=== PATIENT | female | born 1990 | race African-American/Black ===

== ENCOUNTER 2016-10-28 08:57 | Emergency (ER) | payer MEDICAID, OTHER ==
[2016-10-28] MEDS ORDERED: Sodium Chloride 0.9% 1,000 ML ONE ×2 (09:26→10:25)
[2016-10-28 09:37] LABS: Bilirubin Negative (Negative); Blood, Urine Trace (Negative); Glucose, Urine (Dipstick) 500 mg/dL (Negative); Leukocyte Trace (Negative); Nitrite Negative (Negative); Protein, Urine (Dipstick) Negative (Neg-Trace); Urobilinogen 0.2 mg/dL (0.2-1.0); pH, Urine 5.5 (5.0-9.0)
[2016-10-28 09:43] LABS: Clarity Cloudy (Clear); Specific Gravity, Urine 1.005 (1.002-1.036)
[2016-10-28 09:45] LABS: Pregnancy Test - Urine (BHCG) NEGATIVE (NEGATIVE); Pregu Control Bar Appear? YES (CONTROL BAR); Specific Gravity 1.005 (1.002-1.036)
[2016-10-28 09:50] LABS: #Basophils 0.1 thou/uL (0.0-0.2); #Eosinphils 0.2 thou/uL (0.0-0.7); #Lymphocytes 3.5 thou/uL (1.20-3.40); #Monocytes 0.4 thou/uL (0.11-0.59); #Neutrophils 2.9 thou/uL (1.40-6.50); %Basophils 0.9 % (0.0-1.0); %Eosinophils 2.5 % (0.0-10.0); %Lymphocytes 51.6 % (21.0-51.0); %Monocytes 5.4 % (0.0-10.0); %Neutrophils 39.6 % (42.0-75.0); CKMB 0.8 ng/mL (0-6.6); Mean Corpuscular HGB CONC 32.6 g/dL (32.0-36.0); Mean Corpuscular Hemoglobin 27.2 pg (27.0-31.0); Mean Corpuscular Volume 83.4 fl (81.0-99.0); Mean Platelet Volume 10.1 fL (7.4-10.4); Platelet Count 222 thou/uL (130-400); RBC Distribution Width 12.7 % (11.5-14.5); Red Blood Cell (RBC) Count 4.79 mill/uL (4.20-5.40); Troponin I 0.012 ng/mL (< 0.028); White Blood Cell (WBC) Count 7.4 thou/uL (4.8-10.8)
[2016-10-28 09:53] LABS: ALT (SGPT) 14 U/L (8-55); AST (SGOT) 13 U/L (5-34); Albumin 4.1 g/dL (3.5-5.0); Alkaline Phosphatase 103 U/L (40-150); Anion Gap 17 mmol/L (10-20); BUN (Urea Nitrogen) 8 mg/dL (7.0-18.7); Bilirubin, Total 0.6 mg/dL (0.2-1.2); CK (CPK) 46 U/L (29-168); Calc. Creatinine Clearance 0 mL/min (70-130); Calcium 9.7 mg/dL (7.8-10.44); Carbon Dioxide 24 mmol/L (22-29); Chloride 97 mmol/L (98-107); Estimated GFR-MDRD 60; Globulin 4.2 g/dL (2.4-3.5); Lipase 23 U/L (8-78); Potassium 4.2 mmol/L (3.5-5.1); Protein, Total 8.3 g/dL (6.0-8.3); Sodium 134 mmol/L (136-145)
[2016-10-28 09:55] LABS: Bacteria/HPF 3+ HPF (None Seen); RBC/HPF 0-3 HPF (0-3)
[2016-10-28 09:56] LABS: Crystals/HPF 1+ AMORPH PHOS HPF (Negative); Other Microscopic Description NO
[2016-10-28 10:00] LABS: Glucose 592 mg/dL (70-105)
[2016-10-28] MEDS ORDERED: Insulin Regular 300 UNITS/3 ML VIAL ONE (10:09)
[2016-10-28] MEDS ORDERED: Sodium Chloride 0.9% 0 ML ONE ×2 (10:09→10:10)
[2016-10-28] MEDS ORDERED: Sodium Chloride 0.9% 100 ML ONE (10:10)
[2016-10-28 10:31] LABS: Base Excess -0.2 mEq/L (0 (+/- 2.5)); Hemoglobin (Hb) 12.8 g/dL (11.7-15.5)
--- NOTE | 2016-10-28 10:40 | RAD ---
PORTABLE FRONTAL CHEST RADIOGRAPH: Date: 10-28-16 Comparison: 12-05-14 History: Chest pain. FINDINGS: There is no pneumothorax, pleural fluid, focal consolidation or alveolar edema. Heart and mediastina l contours are grossly unremarkable. Osseous structures are grossly unremarkable. IMPRESSION: No acute findings. POS: [facility]
[2016-10-28] MEDS ORDERED: Levemir Flexpen 100 UNITS/ML PEN SC SCH (11:30)
[2016-10-28 12:40] LABS: Amphetamine Not Detected (NotDetected); Barbiturates Screen Not Detected (NotDetected); Benzodiazepine Screen Not Detected (NotDetected); Cocaine Metabolite Screen Not Detected (NotDetected); Medtox Control Line Valid? VALID (VALID); Methadone Not Detected (NotDetected); Methamphetamine Not Detected (NotDetected); Opiate Screen Not Detected (NotDetected); Oxycodone Screen Not Detected (NotDetected); Phencyclidine (PCP) Not Detected (NotDetected); THC/Cannabinoid Screen Not Detected (NotDetected); Tricyclic Screen Not Detected (NotDetected)
[2016-10-28] MEDS ORDERED: Cipro 250 MG TAB ONE (13:05)
== END 2016-10-28 13:15 | disposition home or self-care (01) ==
LOC: NAV ERS 08:57
DX: R07.9 Chest pain, unspecified (principal); E86.0 Dehydration; E10.65 Type 1 diabetes mellitus with hyperglycemia; N39.0 Urinary tract infection, site not specified
CPT/HCPCS: 36415; 36416; 71010; 80053; 80306; 81003; 81015; 81025; 82010; 82550; 82553; 82805; 83690; 84484; 85025; 87077; 87086; 87186; 93005; 96361; 96365; 96366; 96372; J1815; J7050

== ENCOUNTER 2016-12-03 19:08 | Emergency (ER) | payer OTHER ==
[2016-12-03 20:28] LABS: Bilirubin Negative (Negative); Blood, Urine Trace (Negative); Clarity Clear (Clear); Glucose, Urine (Dipstick) 500 mg/dL (Negative); Leukocyte Negative (Negative); Nitrite Negative (Negative); Protein, Urine (Dipstick) Negative (Neg-Trace); Urobilinogen 0.2 mg/dL (0.2-1.0); pH, Urine 5.5 (5.0-9.0)
[2016-12-03 20:30] LABS: Specific Gravity, Urine 1.027 (1.002-1.036)
[2016-12-03 20:31] LABS: Bacteria/HPF 1+ HPF (None Seen); RBC/HPF None Seen HPF (0-3); WBC/HPF 0-3 HPF (0-3)
[2016-12-03 20:32] LABS: Pregnancy Test - Urine (BHCG) Negative (NEGATIVE); Pregu Control Background? CLEAR/WHITE (CLR/WHITE); Pregu Control Bar Appear? YES (CONTROL BAR); Specific Gravity 1.027 (1.002-1.036)
[2016-12-03] MEDS ORDERED: Sodium Chloride 0.9% 1,000 ML ONE ×2 (20:49→21:28)
[2016-12-03] MEDS ORDERED: Ondansetron HCl/PF 4 MG/2 ML Vial ONE ×2 (20:52→20:53)
[2016-12-03] MEDS ORDERED: Fentanyl 100 MCG/2 ML VIAL ONE (20:53)
[2016-12-03] MEDS ORDERED: Insulin Regular 300 UNITS/3 ML VIAL ONE (21:09)
[2016-12-03 21:18] LABS: #Basophils 0.1 thou/uL (0.0-0.2); #Eosinphils 0.1 thou/uL (0.0-0.7); #Lymphocytes 4.6 thou/uL (1.20-3.40); #Monocytes 0.5 thou/uL (0.11-0.59); #Neutrophils 3.4 thou/uL (1.40-6.50); %Basophils 1.2 % (0.0-1.0); %Eosinophils 1.4 % (0.0-10.0); %Lymphocytes 52.4 % (21.0-51.0); %Monocytes 6.1 % (0.0-10.0); Hemoglobin 13.1 g/dL (12.0-16.0); Mean Corpuscular HGB CONC 32.8 g/dL (32.0-36.0); Mean Corpuscular Hemoglobin 27.1 pg (27.0-31.0); Mean Corpuscular Volume 82.7 fl (81.0-99.0); Mean Platelet Volume 9.8 fL (7.4-10.4); Platelet Count 235 thou/uL (130-400); RBC Distribution Width 12.9 % (11.5-14.5); Red Blood Cell (RBC) Count 4.84 mill/uL (4.20-5.40); White Blood Cell (WBC) Count 8.7 thou/uL (4.8-10.8)
[2016-12-03 21:22] LABS: Anion Gap 19 mmol/L (10-20); BUN (Urea Nitrogen) 6 mg/dL (7.0-18.7); Calc. Creatinine Clearance 0 mL/min (70-130); Calcium 10.1 mg/dL (7.8-10.44); Carbon Dioxide 26 mmol/L (22-29); Chloride 94 mmol/L (98-107); Estimated GFR-MDRD 73; Glucose 453 mg/dL (70-105); Potassium 4.6 mmol/L (3.5-5.1); Sodium 134 mmol/L (136-145)
[2016-12-03] MEDS ORDERED: Acetaminophen 325 MG TAB ONE (21:32)
== END 2016-12-03 22:56 | disposition home or self-care (01) ==
LOC: NAV ERS 19:08
DX: E10.65 Type 1 diabetes mellitus with hyperglycemia (principal); T23.262A Burn of second degree of back of left hand, initial encounter; T23.261A Burn of second degree of back of right hand, initial encounter; R53.1 Weakness; X08.8XXA Exposure to other specified smoke, fire and flames, initial encounter
CPT/HCPCS: 36416; 80048; 81003; 81015; 81025; 82010; 85025; 96361; 96374; 96375; J1815; J2405; J3010; J7050

== ENCOUNTER 2017-04-01 22:11 | Emergency (ER) | payer OTHER, SELFPAY ==
[2017-04-01] MEDS ORDERED: Fluorescein Opthalmic Strip ONE (22:33)
[2017-04-01] MEDS ORDERED: HYDROcodone/Acetaminophen 5/325 mg Tablet ONE (22:47)
[2017-04-01] MEDS ORDERED: Erythromycin Base 0.5% Oint 1 GM TUBE ONE (22:47)
== END 2017-04-01 22:58 | disposition home or self-care (01) ==
LOC: NAV ERS 22:11
DX: S05.91XA Unspecified injury of right eye and orbit, initial encounter (principal); E10.40 Type 1 diabetes mellitus with diabetic neuropathy, unspecified; W22.8XXA Striking against or struck by other objects, initial encounter
CPT/HCPCS: 99283

== ENCOUNTER 2017-04-27 20:48 | Emergency (ER) | payer SELFPAY ==
[2017-04-27] MEDS ORDERED: Ketorolac Tromethamine 60 MG/2 ML VIAL ONE (21:19)
[2017-04-27] MEDS ORDERED: Ondansetron ODT 4 MG TAB ONE (21:19)
[2017-04-27] MEDS ORDERED: Acetaminophen 500 MG TAB ONE (21:19)
[2017-04-27] MEDS ORDERED: diphenhydrAMINE 25 MG CAP ONE (21:22)
== END 2017-04-27 21:45 | disposition home or self-care (01) ==
LOC: NAV ERS 20:48
DX: R51 Headache (principal); E10.40 Type 1 diabetes mellitus with diabetic neuropathy, unspecified
CPT/HCPCS: 96372; J1885; Q0162

== ENCOUNTER 2017-08-15 11:50 | Emergency (ER) | payer OTHER, SELFPAY | END 2017-08-15 12:33 | disposition home or self-care (01) | LOC: NAV ERS 11:50 | DX: E10.40 Type 1 diabetes mellitus with diabetic neuropathy, unspecified (principal) | CPT/HCPCS: 99283 ==

== ENCOUNTER 2017-09-26 12:32 | Emergency (ER) | payer MEDICAID, SELFPAY ==
[2017-09-26] MEDS ORDERED: Cephalexin 250 MG CAP ONE (13:03)
[2017-09-26] MEDS ORDERED: Sulfameth/Trimethoprim DS 800-160mg TAB ONE (13:03)
== END 2017-09-26 13:10 | disposition home or self-care (01) ==
LOC: NAV ERS 12:32
DX: T81.4XXA Infection following a procedure, initial encounter (principal); E10.40 Type 1 diabetes mellitus with diabetic neuropathy, unspecified; Z79.899 Other long term (current) drug therapy
CPT/HCPCS: 99282

== ENCOUNTER 2018-01-11 18:38 | Emergency (ER) | payer SELFPAY ==
[2018-01-11] MEDS ORDERED: diphenhydrAMINE 50 MG/ML VIAL ONE (19:41)
[2018-01-11] MEDS ORDERED: Metoclopramide HCl 10 MG/2 ML VIAL ONE (19:41)
[2018-01-11] MEDS ORDERED: Sodium Chloride 0.9% 0 ML ONE (19:41)
[2018-01-11 19:48] LABS: Bilirubin Negative (Negative); Blood, Urine Trace (Negative); Glucose, Urine (Dipstick) >=1000 mg/dL (Negative); Leukocyte Large (Negative); Nitrite Negative (Negative); Protein, Urine (Dipstick) Negative (Neg-Trace); Urobilinogen 0.2 mg/dL (0.2-1.0)
[2018-01-11 20:01] LABS: Clarity SL HAZY (Clear)
[2018-01-11 20:02] LABS: #Basophils 0.1 thou/uL (0.0-0.2); #Eosinphils 0.1 thou/uL (0.0-0.7); #Lymphocytes 3.7 thou/uL (1.20-3.40); #Monocytes 0.5 thou/uL (0.11-0.59); #Neutrophils 3.4 thou/uL (1.40-6.50); %Basophils 1.2 % (0.0-1.0); %Eosinophils 1.6 % (0.0-10.0); %Monocytes 6.9 % (0.0-10.0); %Neutrophils 43.5 % (42.0-75.0); Hemoglobin 11.7 g/dL (12.0-16.0); Mean Corpuscular HGB CONC 31.3 g/dL (32.0-36.0); Mean Corpuscular Hemoglobin 26.4 pg (27.0-31.0); Mean Corpuscular Volume 84.3 fL (78.0-98.0); Mean Platelet Volume 10.9 fL (7.4-10.4); Platelet Count 185 thou/uL (130-400); RBC Distribution Width 11.8 % (11.5-14.5); Red Blood Cell (RBC) Count 4.42 mill/uL (4.20-5.40); White Blood Cell (WBC) Count 7.8 thou/uL (4.8-10.8)
[2018-01-11 20:03] LABS: BHCG - Serum Negative (NEGATIVE); Pregs Control Bar Appear? YES (CONTROL BAR)
[2018-01-11 20:04] LABS: Amphetamine Not Detected (NotDetected); Barbiturates Screen Not Detected (NotDetected); Benzodiazepine Screen Not Detected (NotDetected); Cocaine Metabolite Screen Not Detected (NotDetected); Medtox Control Line Valid? VALID (VALID); Methadone Not Detected (NotDetected); Methamphetamine Not Detected (NotDetected); Opiate Screen Not Detected (NotDetected); Oxycodone Screen Not Detected (NotDetected); Phencyclidine (PCP) Not Detected (NotDetected); THC/Cannabinoid Screen Not Detected (NotDetected); Tricyclic Screen Not Detected (NotDetected)
[2018-01-11 20:05] LABS: pH (venous) 7.35 (7.32-7.43)
[2018-01-11 20:06] LABS: Base Excess 0.7 mEq/L (-2.0 to +3.0); Hemoglobin (Hb) 12.4 g/dL (11.7-15.5)
[2018-01-11 20:08] LABS: Specific Gravity, Urine 1.012 (1.002-1.036)
[2018-01-11 20:09] LABS: ALT (SGPT) 123 U/L (8-55); AST (SGOT) 96 U/L (5-34); Albumin 3.2 g/dL (3.5-5.0); Alkaline Phosphatase 88 U/L (40-150); Anion Gap 14 mmol/L (10-20); BUN (Urea Nitrogen) 7 mg/dL (7.0-18.7); Bacteria/HPF 4+ HPF (None Seen); Bilirubin, Total 0.2 mg/dL (0.2-1.2); CK (CPK) 191 U/L (29-168); Calc. Creatinine Clearance 0 mL/min (70-130); Calcium 8.9 mg/dL (7.8-10.44); Carbon Dioxide 24 mmol/L (22-29); Chloride 105 mmol/L (98-107); Estimated GFR-MDRD Greater than 90; Globulin 3.2 g/dL (2.4-3.5); Glucose 319 mg/dL (70-105); Potassium 4.2 mmol/L (3.5-5.1); Protein, Total 6.4 g/dL (6.0-8.3); RBC/HPF None Seen HPF (0-3); Sodium 139 mmol/L (136-145); Squamous Epithelial 0-3 HPF (0-3)
[2018-01-11] MEDS ORDERED: Sodium Chloride 0.9% 1,000 ML ONE (20:26)
[2018-01-11] MEDS ORDERED: cefTRIAXone\\ROCEPHIN 1 GM VIAL ONE (20:26)
[2018-01-11] MEDS ORDERED: Sodium Chloride 0.9% 100 ML ONE (20:27)
--- NOTE | 2018-01-11 20:29 | CT ---
CT OF THE BRAIN WITHOUT CONTRAST: 01/11/18 COMPARISON: None. HISTORY: Headache and bodyaches for the last two days. Hypertension. TECHNIQUE: Multiple contiguous axial images were obtained in a CT of the brain without contrast. FINDINGS: The brain is normal in morphology and attenuation without focal lesions or confluent areas of infarct ion. There is no evidence of hydrocephalus, intracranial hemorrhage or extra-axial fluid collection. The calvarium and overlying soft tissues are unremarkable. The visualized paranasal sinuses and masto id air cells are well aerated. IMPRESSION: No evidence of acute intracranial abnormality. POS: [facility]
[2018-01-11] MEDS ORDERED: Ketorolac Tromethamine 30 MG/ML VIAL ONE (20:34)
== END 2018-01-11 21:04 | disposition home or self-care (01) ==
LOC: NAV ERS 18:38
DX: R51 Headache (principal); E10.40 Type 1 diabetes mellitus with diabetic neuropathy, unspecified; I10 Essential (primary) hypertension; N39.0 Urinary tract infection, site not specified
CPT/HCPCS: 70450; 80053; 80306; 81003; 81015; 82550; 82805; 83605; 84443; 84703; 85025; 96365; 96368; 96375; J0696; J1200; J1885; J2765; J7050

== ENCOUNTER 2019-02-28 22:44 | Emergency (ER) | payer OTHER ==
[2019-02-28] MEDS ORDERED: Ketorolac Tromethamine 30 MG/ML VIAL ONE (23:29)
[2019-02-28] MEDS ORDERED: Sodium Chloride 0.9% 1,000 ML ONE (23:29)
[2019-02-28 23:30] LABS: Bilirubin Negative (Negative); Blood, Urine Trace (Negative); Clarity Slightly Cloudy (Clear); Glucose, Urine (Dipstick) 250 mg/dL (Negative); Leukocyte Moderate (Negative); Nitrite Negative (Negative); Protein, Urine (Dipstick) Trace mg/dL (Neg-Trace); Urobilinogen 0.2 mg/dL (Less than 2)
[2019-02-28 23:33] LABS: Pregnancy Test - Urine (BHCG) Negative (Negative); Pregu Control Background? CLEAR/WHITE (CLR/WHITE); Pregu Control Bar Appear? YES (CONTROL BAR)
[2019-02-28 23:34] LABS: Bacteria/HPF 3+ HPF (None Seen); RBC/HPF 0-3 HPF (0-3); Squamous Epithelial 0-3 HPF (0-3)
[2019-02-28 23:42] LABS: #Basophils 0.1 thou/uL (0.0-0.2); #Eosinphils 0.2 thou/uL (0.0-0.7); #Monocytes 0.5 thou/uL (0.11-0.59); #Neutrophils 3.8 thou/uL (1.40-6.50); %Basophils 0.7 % (0.0-1.0); %Eosinophils 1.7 % (0.0-10.0); %Lymphocytes 52.3 % (21.0-51.0); %Monocytes 5.1 % (0.0-10.0); %Neutrophils 40.1 % (42.0-75.0); Hemoglobin 11.1 g/dL (12.0-16.0); Mean Corpuscular Hemoglobin 27.1 pg (27.0-31.0); Mean Platelet Volume 10.4 fL (7.4-10.4); Platelet Count 198 thou/uL (130-400); RBC Distribution Width 12.9 % (11.5-14.5); White Blood Cell (WBC) Count 9.5 thou/uL (4.8-10.8)
[2019-02-28 23:59] LABS: ALT (SGPT) 18 U/L (8-55); AST (SGOT) 15 U/L (5-34); Albumin 4.1 g/dL (3.5-5.0); Alkaline Phosphatase 78 U/L (40-150); Anion Gap 16 mmol/L (10-20); BUN (Urea Nitrogen) 12 mg/dL (7.0-18.7); Bilirubin, Total 0.4 mg/dL (0.2-1.2); Calc. Creatinine Clearance 0 mL/min (70-130); Calcium 9.6 mg/dL (7.8-10.44); Carbon Dioxide 24 mmol/L (22-29); Chloride 104 mmol/L (98-107); Estimated GFR-MDRD 69; Globulin 3.9 g/dL (2.4-3.5); Glucose 151 mg/dL (70-105); Lipase 52 U/L (8-78); Potassium 3.7 mmol/L (3.5-5.1); Sodium 140 mmol/L (136-145)
[2019-03-01] MEDS ORDERED: Nitrofurantoin Macrocrystal 50 MG CAP ONE (00:10)
== END 2019-03-01 00:32 | disposition home or self-care (01) ==
LOC: NAV ERS 22:44
DX: N39.0 Urinary tract infection, site not specified (principal); D64.9 Anemia, unspecified; E86.9 Volume depletion, unspecified; E10.42 Type 1 diabetes mellitus with diabetic polyneuropathy; I10 Essential (primary) hypertension
CPT/HCPCS: 36416; 80053; 81003; 81015; 81025; 83690; 85025; 96374; 36415-59; J1885; J7050

== ENCOUNTER 2019-05-18 17:46 | Emergency (ER) | payer SELFPAY ==
[~2019-05-18 17:46] MED LIST: Cyclobenzaprine 10 MG TAB ONE; Fentanyl 100 MCG/2 ML VIAL ONE; Sodium Chloride 0.9% 1,000 ML BAG ONE
[2019-05-18 18:47] LABS: #Basophils 0.1 thou/uL (0.0-0.2); #Eosinphils 0.1 thou/uL (0.0-0.7); #Monocytes 0.4 thou/uL (0.11-0.59); #Neutrophils 3.2 thou/uL (1.40-6.50); %Eosinophils 2.5 % (0.0-10.0); %Lymphocytes 35.1 % (21.0-51.0); %Monocytes 6.2 % (0.0-10.0); %Neutrophils 55.2 % (42.0-75.0); Hemoglobin 10.9 g/dL (12.0-16.0); Mean Corpuscular HGB CONC 32.6 g/dL (32.0-36.0); Mean Corpuscular Hemoglobin 27.5 pg (27.0-31.0); Mean Corpuscular Volume 84.5 fL (78.0-98.0); Mean Platelet Volume 10.2 fL (7.4-10.4); Platelet Count 195 thou/uL (130-400); RBC Distribution Width 12.5 % (11.5-14.5); Red Blood Cell (RBC) Count 3.97 mill/uL (4.20-5.40); White Blood Cell (WBC) Count 5.8 thou/uL (4.8-10.8)
[2019-05-18 18:47] LABS: Bilirubin Negative (Negative); Blood, Urine Trace (Negative); Glucose, Urine (Dipstick) 500 mg/dL (Negative); Leukocyte Large (Negative); Nitrite Negative (Negative); Protein, Urine (Dipstick) Negative (Neg-Trace); Urobilinogen 0.2 mg/dL (Less than 2)
[2019-05-18 18:52] LABS: Clarity Hazy (Clear)
[2019-05-18 18:55] LABS: Bacteria/HPF 4+ HPF (None Seen); RBC/HPF 0-3 HPF (0-3); Squamous Epithelial 0-3 HPF (0-3)
[2019-05-18] MEDS ORDERED: Sodium Chloride 0.9% 100 ML ONE (19:03)
[2019-05-18] MEDS ORDERED: cefTRIAXone\\ROCEPHIN 1 GM VIAL ONE (19:03)
[2019-05-18 19:09] LABS: ALT (SGPT) 24 U/L (8-55); AST (SGOT) 15 U/L (5-34); Albumin 4.1 g/dL (3.5-5.0); Alkaline Phosphatase 72 U/L (40-110); Anion Gap 16 mmol/L (10-20); BUN (Urea Nitrogen) 13 mg/dL (7.0-18.7); Bilirubin, Total 0.6 mg/dL (0.2-1.2); Calc. Creatinine Clearance 0 mL/min (70-130); Calcium 9.9 mg/dL (7.8-10.44); Carbon Dioxide 26 mmol/L (22-29); Chloride 100 mmol/L (98-107); Estimated GFR-MDRD 77; Globulin 3.8 g/dL (2.4-3.5); Glucose 283 mg/dL (70-105); Potassium 4.3 mmol/L (3.5-5.1); Protein, Total 7.9 g/dL (6.0-8.3); Sodium 138 mmol/L (136-145)
== END 2019-05-18 19:50 | disposition home or self-care (01) ==
LOC: NAV ERS 17:46
DX: N39.0 Urinary tract infection, site not specified (principal); E10.40 Type 1 diabetes mellitus with diabetic neuropathy, unspecified; I10 Essential (primary) hypertension; F41.9 Anxiety disorder, unspecified; F32.9 Major depressive disorder, single episode, unspecified; Z79.899 Other long term (current) drug therapy
CPT/HCPCS: 36416; 80053; 81003; 81015; 85025; 87077; 87086; 87186; 96365; 96375; J0696; J3010; J3490; J7050

== ENCOUNTER 2019-06-25 14:56 | Emergency (ER) | payer SELFPAY ==
[2019-06-25] MEDS ORDERED: Sodium Chloride 0.9% 1,000 ML ONE (15:11)
[2019-06-25 15:42] LABS: #Eosinphils 0.2 thou/uL (0.0-0.7); #Lymphocytes 2.4 thou/uL (1.20-3.40); #Monocytes 0.4 thou/uL (0.11-0.59); #Neutrophils 3.3 thou/uL (1.40-6.50); %Basophils 0.6 % (0.0-1.0); %Eosinophils 2.5 % (0.0-10.0); %Neutrophils 52.8 % (42.0-75.0); Hemoglobin 10.5 g/dL (12.0-16.0); Mean Corpuscular HGB CONC 32.8 g/dL (32.0-36.0); Mean Corpuscular Hemoglobin 27.6 pg (27.0-31.0); Mean Corpuscular Volume 84.1 fL (78.0-98.0); Mean Platelet Volume 10.4 fL (7.4-10.4); Platelet Count 160 thou/uL (130-400); RBC Distribution Width 12.1 % (11.5-14.5); Red Blood Cell (RBC) Count 3.79 mill/uL (4.20-5.40); White Blood Cell (WBC) Count 6.3 thou/uL (4.8-10.8)
--- NOTE | 2019-06-25 15:56 | RAD ---
EXAM: Single view of the chest HISTORY: Chest and back pain COMPARISON: 03/03/2019 FINDINGS: Single view of the chest shows a normal sized cardiomediastinal silhouette. There is no iris dence of consolidation, mass, or pleural effusion. The bones are unremarkable. IMPRESSION: No evidence of acute cardiopulmonary disease
[2019-06-25 16:05] LABS: ALT (SGPT) 18 U/L (8-55); AST (SGOT) 15 U/L (5-34); Albumin 3.8 g/dL (3.5-5.0); Alkaline Phosphatase 75 U/L (40-110); Anion Gap 16 mmol/L (10-20); BUN (Urea Nitrogen) 9 mg/dL (7.0-18.7); Bilirubin, Total 0.3 mg/dL (0.2-1.2); Calc. Creatinine Clearance 0 mL/min (70-130); Carbon Dioxide 22 mmol/L (22-29); Chloride 101 mmol/L (98-107); Estimated GFR-MDRD 78; Globulin 3.6 g/dL (2.4-3.5); Glucose 539 mg/dL (70-105); Potassium 3.9 mmol/L (3.5-5.1); Protein, Total 7.4 g/dL (6.0-8.3); Sodium 135 mmol/L (136-145)
[2019-06-25] MEDS ORDERED: Acetaminophen 500 MG TAB ONE (16:06)
[2019-06-25] MEDS ORDERED: Ondansetron ODT 4 MG TAB ONE (16:07)
[2019-06-25] MEDS ORDERED: Ketorolac Tromethamine 30 MG/ML VIAL ONE (16:07)
[2019-06-25] MEDS ORDERED: Insulin Regular 300 UNITS/3 ML VIAL ONE (16:09)
[2019-06-25] MEDS ORDERED: HYDROcodone/Acetaminophen 5/325 mg Tablet ONE (16:11)
[2019-06-25 16:22] LABS: Bilirubin Negative (Negative); Blood, Urine Trace (Negative); Clarity Cloudy (Clear); Glucose, Urine (Dipstick) >=1000 mg/dL (Negative); Leukocyte Small (Negative); Nitrite Negative (Negative); Protein, Urine (Dipstick) Negative (Neg-Trace); Urobilinogen 0.2 mg/dL (Less than 2)
[2019-06-25 16:28] LABS: WBC/HPF 21-50 HPF (0-3)
[2019-06-25 16:29] LABS: Bacteria/HPF 3+ HPF (None Seen)
[2019-06-25] MEDS ORDERED: Morphine 4 MG/ML VIAL ONE (17:33)
== END 2019-06-25 18:00 | disposition home or self-care (01) ==
LOC: NAV ERS 14:56
DX: E10.65 Type 1 diabetes mellitus with hyperglycemia (principal); R07.9 Chest pain, unspecified; E86.0 Dehydration; I10 Essential (primary) hypertension; M54.5 Low back pain; E10.40 Type 1 diabetes mellitus with diabetic neuropathy, unspecified; F41.9 Anxiety disorder, unspecified; F32.9 Major depressive disorder, single episode, unspecified; Z79.899 Other long term (current) drug therapy
CPT/HCPCS: 36416; 71045; 80053; 81003; 81015; 84484; 85025; 85379; 93005; 96361; 96374; 96375; 36415-59; J1815; J1885; J2270; J7050; Q0162

== ENCOUNTER 2019-07-01 21:31 | Emergency (ER) | payer SELFPAY ==
[2019-07-01] MEDS ORDERED: Sodium Chloride 0.9% 1,000 ML ONE (22:14)
[2019-07-01 22:39] LABS: Bilirubin Negative (Negative); Blood, Urine Negative (Negative); Clarity Slightly Cloudy (Clear); Glucose, Urine (Dipstick) 500 mg/dL (Negative); Leukocyte Trace (Negative); Nitrite Negative (Negative); Protein, Urine (Dipstick) 30 mg/dL (Neg-Trace); Urobilinogen 0.2 mg/dL (Less than 2)
[2019-07-01 22:48] LABS: Bacteria/HPF 3+ HPF (None Seen); RBC/HPF None Seen HPF (0-3)
[2019-07-01 22:49] LABS: Amphetamine Not Detected (NotDetected); Barbiturates Screen Not Detected (NotDetected); Benzodiazepine Screen Not Detected (NotDetected); Cocaine Metabolite Screen Not Detected (NotDetected); Medtox Control Line Valid? VALID (VALID); Methadone Not Detected (NotDetected); Methamphetamine Not Detected (NotDetected); Opiate Screen Not Detected (NotDetected); Oxycodone Screen Not Detected (NotDetected); Phencyclidine (PCP) Not Detected (NotDetected); THC/Cannabinoid Screen Not Detected (NotDetected); Tricyclic Screen Not Detected (NotDetected)
[2019-07-01 23:19] LABS: ALT (SGPT) 26 U/L (8-55); AST (SGOT) 19 U/L (5-34); Albumin 4.2 g/dL (3.5-5.0); Alkaline Phosphatase 88 U/L (40-110); Anion Gap 19 mmol/L (10-20); BUN (Urea Nitrogen) 13 mg/dL (7.0-18.7); Bilirubin, Total 0.5 mg/dL (0.2-1.2); Calc. Creatinine Clearance 0 mL/min (70-130); Calcium 9.7 mg/dL (7.8-10.44); Carbon Dioxide 21 mmol/L (22-29); Chloride 102 mmol/L (98-107); Estimated GFR-MDRD 68; Globulin 4.2 g/dL (2.4-3.5); Glucose 259 mg/dL (70-105); Lipase 47 U/L (8-78); Potassium 4.3 mmol/L (3.5-5.1); Protein, Total 8.4 g/dL (6.0-8.3); Sodium 138 mmol/L (136-145)
[2019-07-01 23:24] LABS: #Basophils 0.1 thou/uL (0.0-0.2); #Eosinphils 0.3 thou/uL (0.0-0.7); #Lymphocytes 3.4 thou/uL (1.20-3.40); #Monocytes 0.4 thou/uL (0.11-0.59); #Neutrophils 4.1 thou/uL (1.40-6.50); %Basophils 1.2 % (0.0-1.0); %Eosinophils 3.2 % (0.0-10.0); %Lymphocytes 41.1 % (21.0-51.0); %Monocytes 4.3 % (0.0-10.0); %Neutrophils 50.2 % (42.0-75.0); Hemoglobin 11.2 g/dL (12.0-16.0); Mean Corpuscular HGB CONC 33.4 g/dL (32.0-36.0); Mean Corpuscular Hemoglobin 27.9 pg (27.0-31.0); Mean Corpuscular Volume 83.6 fL (78.0-98.0); Mean Platelet Volume 10.2 fL (7.4-10.4); Platelet Count 158 thou/uL (130-400); Red Blood Cell (RBC) Count 4.03 mill/uL (4.20-5.40); White Blood Cell (WBC) Count 8.2 thou/uL (4.8-10.8)
[2019-07-01 23:30] LABS: MDiff Complete? YES; Manual Diff?? NO
[2019-07-01 23:36] LABS: BHCG - Serum Negative (NEGATIVE); Pregs Control Bar Appear? YES (CONTROL BAR)
--- NOTE | 2019-07-01 23:56 | RAD ---
XR Chest Pa Lat STANDARD HISTORY: Chest pain and shortness of breath. COMPARISON: 12/05/2014 study. FINDINGS: Heart size and mediastinum are within normal limits. The lungs are clear of infiltrates. No bony findings. IMPRESSION: Unremarkable chest.
[2019-07-02] MEDS ORDERED: Lidocaine Viscous Sol 2% 15 ml UD Cup ONE (00:06)
[2019-07-02] MEDS ORDERED: Mag-Al Plus 1200 MG/1200 MG/120 MG/30 ML UDCUP ONE (00:06)
[2019-07-02] MEDS ORDERED: Cephalexin 250 MG CAP ONE (01:17)
[2019-07-02] MEDS ORDERED: Sodium Chloride 0.9% 0 ML ONE (01:19)
[2019-07-02] MEDS ORDERED: Ketorolac Tromethamine 30 MG/ML VIAL ONE (01:19)
== END 2019-07-02 01:46 | disposition left against medical advice (07) ==
LOC: NAV ERS 21:31
DX: R07.9 Chest pain, unspecified (principal); R10.9 Unspecified abdominal pain; M54.9 Dorsalgia, unspecified; F41.9 Anxiety disorder, unspecified; E10.40 Type 1 diabetes mellitus with diabetic neuropathy, unspecified; I10 Essential (primary) hypertension; F32.9 Major depressive disorder, single episode, unspecified; Z79.899 Other long term (current) drug therapy; Z79.4 Long term (current) use of insulin
CPT/HCPCS: 36416; 71046; 80053; 80306; 81003; 81015; 83605; 83690; 84484; 84703; 85025; 85379; 87077; 87086; 87186; 93005; 96361; 96374; 36415-59; J1885; J7050

== ENCOUNTER 2019-11-10 03:39 | Emergency (ER) | payer SELFPAY ==
[2019-11-10] MEDS ORDERED: Ketorolac Tromethamine 60 MG/2 ML VIAL ONE (04:04)
== END 2019-11-10 04:30 | disposition home or self-care (01) ==
LOC: NAV ERS 03:39
DX: M54.2 Cervicalgia (principal); E10.40 Type 1 diabetes mellitus with diabetic neuropathy, unspecified; I10 Essential (primary) hypertension; F41.9 Anxiety disorder, unspecified; F32.9 Major depressive disorder, single episode, unspecified; Z79.4 Long term (current) use of insulin; Z79.899 Other long term (current) drug therapy
CPT/HCPCS: 96372; 99283; J1885

== ENCOUNTER 2020-02-04 19:36 | Emergency (ER) | payer SELFPAY ==
--- NOTE | 2020-02-04 20:59 | RAD ---
RIGHT SHOULDER THREE VIEWS: History: Shoulder pain. Pain extending into right shoulder region. FINDINGS: AC and glenohumeral joints are unremarkable other than minimal arthrosis of the AC joint. No fracture or other bony findings. IMPRESSION: No acute findings. POS: OFF
--- NOTE | 2020-02-04 21:13 | CT ---
CT OF CERVICAL SPINE PERFORMED WITHOUT CONTRAST ENHANCEMENT: History: Neck pain extending into right shoulder. FINDINGS: The vertebral bodies are normal in height. Disc spaces are well preserved and facets are in normal al ignment. There is no evidence of significant canal or foraminal stenosis. I do not appreciate any dis c herniation on this noncontrast study. Lung apices are clear. IMPRESSION: Unremarkable CT of the cervical spine. POS: OFF
== END 2020-02-04 20:50 | disposition home or self-care (01) ==
LOC: NAV ERS 19:36
DX: M54.2 Cervicalgia (principal); M25.511 Pain in right shoulder; E10.9 Type 1 diabetes mellitus without complications; E10.40 Type 1 diabetes mellitus with diabetic neuropathy, unspecified; I10 Essential (primary) hypertension; F41.9 Anxiety disorder, unspecified; F32.9 Major depressive disorder, single episode, unspecified; Z79.899 Other long term (current) drug therapy
CPT/HCPCS: 72125

== ENCOUNTER 2021-02-11 12:22 | Emergency (ER) | payer OTHER, SELFPAY ==
[2021-02-11] MEDS ORDERED: Ketorolac Tromethamine 30 MG/ML VIAL ONE (12:52)
[2021-02-11 13:08] LABS: Pregnancy Test - Urine (BHCG) Negative (Negative); Specific Gravity 1.021 (1.002-1.036)
[2021-02-11 13:09] LABS: Pregu Control Background? CLEAR/WHITE (CLR/WHITE); Pregu Control Bar Appear? YES (CONTROL BAR)
== END 2021-02-11 13:48 | disposition home or self-care (01) ==
LOC: NAV ERS 12:22
DX: M54.2 Cervicalgia (principal); M62.838 Other muscle spasm; I10 Essential (primary) hypertension; E10.9 Type 1 diabetes mellitus without complications; Z79.899 Other long term (current) drug therapy; V43.53XA Car driver injured in collision with pick-up truck in traffic accident, initial encounter
CPT/HCPCS: 72125; 81025; 96372; J1885

== ENCOUNTER 2021-06-11 10:36 | Emergency (ER) | payer SELFPAY ==
[2021-06-11] MEDS ORDERED: Promethazine HCl 25 MG/ML VIAL ONE (11:08)
[2021-06-11] MEDS ORDERED: Sodium Chloride 0.9% 1,000 ML ONE (11:08)
[2021-06-11 11:46] LABS: #Basophils 0.1 thou/uL (0.0-0.2); #Eosinphils 0.3 thou/uL (0.0-0.7); #Monocytes 0.4 thou/uL (0.11-0.59); #Neutrophils 5.6 thou/uL (1.40-6.50); %Basophils 0.7 % (0.0-1.0); %Eosinophils 3.4 % (0.0-10.0); %Lymphocytes 13.8 % (21.0-51.0); %Monocytes 5.6 % (0.0-10.0); %Neutrophils 76.5 % (42.0-75.0); Hemoglobin 10.6 g/dL (12.0-16.0); Mean Corpuscular HGB CONC 31.2 g/dL (32.0-36.0); Mean Corpuscular Volume 86.6 fL (78.0-98.0); Mean Platelet Volume 9.3 fL (7.4-10.4); Platelet Count 212 thou/uL (130-400); Red Blood Cell (RBC) Count 3.93 mill/uL (4.20-5.40); White Blood Cell (WBC) Count 7.3 thou/uL (4.8-10.8)
[2021-06-11 11:58] LABS: ALT (SGPT) 24 U/L (8-55); AST (SGOT) 20 U/L (5-34); Albumin 3.8 g/dL (3.5-5.0); Alkaline Phosphatase 82 U/L (40-110); Anion Gap 13 mmol/L (10-20); BUN (Urea Nitrogen) 20 mg/dL (7.0-18.7); Bilirubin, Total 0.6 mg/dL (0.2-1.2); Calc. Creatinine Clearance 0 mL/min (70-130); Calcium 9.3 mg/dL (7.8-10.44); Carbon Dioxide 21 mmol/L (22-29); Chloride 107 mmol/L (98-107); Globulin 4.4 g/dL (2.4-3.5); Glucose 184 mg/dL (70-105); Lipase 49 U/L (8-78); Potassium 4.5 mmol/L (3.5-5.1); Protein, Total 8.2 g/dL (6.0-8.3); Sodium 136 mmol/L (136-145)
[2021-06-11 12:02] LABS: Bilirubin Negative (Negative); Clarity Clear (Clear); Glucose, Urine (Dipstick) Negative (Negative); Ketone, Urine Negative (Negative); Leukocyte Negative (Negative); Nitrite Negative (Negative); Protein, Urine (Dipstick) 100 mg/dL (Neg-Trace); Specific Gravity, Urine 1.015 (1.005-1.030); Urobilinogen 0.2 mg/dL (Less than 2)
[2021-06-11 12:04] LABS: Base Excess-Venous -2.6 mmol/L (-2.0 to 3.0); Bicarbonate (HCO3v) 22.7 mmol/L (22.0-28.0); CO2 Tension (PvCO2) 40.7 mmHg (42.0-51.0); Calcium, Ionized 1.12 mmol/L (1.15-1.33); Chloride 108 mmol/L (98-107); Hemoglobin - Calc 11.8 g/dL (12.0-16.0); Potassium 4.5 mmol/L (3.5-5.1); Sodium 140 mmol/L (138-145); vO2 Saturation-calc 93.4 % (60.0-85.0)
[2021-06-11 12:05] LABS: Blood, Urine Negative (Negative)
[2021-06-11 12:07] LABS: BHCG - Serum Negative (NEGATIVE); Pregs Control Bar Appear? YES (CONTROL BAR)
[2021-06-11 12:11] LABS: RBC/HPF None Seen HPF (0-3)
[2021-06-11 12:12] LABS: Bacteria/HPF Rare-Few HPF (None Seen); Mucous/LPF Rare LPF (<2+); Squamous Epithelial 0-3 HPF (0-3); WBC/HPF None Seen HPF (0-3)
[2021-06-11] MEDS ORDERED: Morphine 4 MG/ML VIAL ONE (13:35)
== END 2021-06-11 14:38 | disposition short-term general hospital (02) ==
LOC: NAV ERS 10:36
DX: R00.0 Tachycardia, unspecified (principal); R10.9 Unspecified abdominal pain; R55 Syncope and collapse; E10.9 Type 1 diabetes mellitus without complications; R79.1 Abnormal coagulation profile; Z20.822 Contact with and (suspected) exposure to COVID-19; I10 Essential (primary) hypertension; Z79.2 Long term (current) use of antibiotics; Z79.899 Other long term (current) drug therapy
CPT/HCPCS: 36416; 71045; 80053; 81003; 81015; 82010; 82330; 82803; 83690; 83735; 83880; 84484; 84703; 85025; 85379; 96372; 99285; J2270; J2550; J7050

== ENCOUNTER 2021-06-16 11:05 | Emergency (ER) | payer SELFPAY | END 2021-06-16 11:30 | disposition left against medical advice (07) | LOC: NAV ERS 11:05 | DX: Z53.21 Procedure and treatment not carried out due to patient leaving prior to being seen by health care provider (principal) ==

== ENCOUNTER 2023-07-15 08:49 | Emergency (ER) | payer BC, SELFPAY ==
[2023-07-15] MEDS ORDERED: Bacitracin 1 PK ONE (10:00)
== END 2023-07-15 10:05 | disposition home or self-care (01) ==
LOC: NAV ERS 08:49
DX: S81.801A Unspecified open wound, right lower leg, initial encounter (principal); R00.0 Tachycardia, unspecified; I10 Essential (primary) hypertension; E10.9 Type 1 diabetes mellitus without complications; X58.XXXA Exposure to other specified factors, initial encounter
CPT/HCPCS: 99283

== ENCOUNTER 2023-08-12 13:59 | Emergency (ER) | payer OTHER, SELFPAY ==
[2023-08-12 14:38] LABS: #Basophils 0.1 thou/uL (0.0-0.2); #Eosinphils 0.3 thou/uL (0.0-0.7); #Lymphocytes 3.9 thou/uL (1.20-3.40); #Monocytes 0.5 thou/uL (0.11-0.59); #Neutrophils 4.5 thou/uL (1.40-6.50); %Basophils 0.8 % (0.0-1.0); %Eosinophils 3.7 % (0.0-10.0); %Lymphocytes 41.6 % (21.0-51.0); %Monocytes 5.7 % (0.0-10.0); %Neutrophils 48.2 % (42.0-75.0); Hematocrit 23.2 % (36.0-47.0); Hemoglobin 7.7 g/dL (12.0-16.0); Mean Corpuscular HGB CONC 33.1 g/dL (32.0-36.0); Mean Corpuscular Hemoglobin 27.9 pg (27.0-31.0); Mean Corpuscular Volume 84.5 fl (78.0-98.0); Platelet Count 204 10x3/uL (130-400); RBC Distribution Width 13.2 % (11.5-14.5); Red Blood Cell (RBC) Count 2.74 mill/uL (4.20-5.40); White Blood Cell (WBC) Count 9.3 10x3/uL (4.8-10.8)
[2023-08-12 15:02] LABS: Troponin I 0.033 ng/mL (< 0.028)
[2023-08-12 15:03] LABS: ALT (SGPT) 21 U/L (8-55); AST (SGOT) 22 U/L (5-34); Albumin 3.2 g/dL (3.5-5.0); Alkaline Phosphatase 88 U/L (40-110); Anion Gap 15 mmol/L (10-20); BUN (Urea Nitrogen) 29 mg/dL (7.0-18.7); Bilirubin, Total 0.3 mg/dL (0.2-1.2); Calc. Creatinine Clearance 0 mL/min (70-130); Calcium 8.7 mg/dL (7.8-10.44); Carbon Dioxide 17 mmol/L (22-29); Chloride 111 mmol/L (98-107); Estimated GFR 39; Globulin 3.9 g/dL (2.4-3.5); Glucose 114 mg/dL (70-105); Potassium 4.6 mmol/L (3.5-5.1); Protein, Total 7.1 g/dL (6.0-8.3); Sodium 138 mmol/L (136-145)
[2023-08-12 15:27] LABS: Bilirubin Negative (Negative); Blood, Urine Trace (Negative); Glucose, Urine (Dipstick) Negative (Negative); Ketone, Urine Negative (Negative); Leukocyte Trace (Negative); Nitrite Negative (Negative); Protein, Urine (Dipstick) > or equal to 300 mg/dL (Neg-Trace); Specific Gravity, Urine 1.025 (1.005-1.030); Urobilinogen 0.2 mg/dL (Less than 2); pH, Urine 6.5 (5.0-9.0)
[2023-08-12] MEDS ORDERED: Morphine 2 MG/ML VIAL ONE ×2 (15:39→20:10)
[2023-08-12] MEDS ORDERED: Ondansetron PF 4 MG/2 ML Vial ONE (15:40)
[2023-08-12] MEDS ORDERED: Sodium Chloride 0.9% 1,000 ML ONE (15:40)
[2023-08-12 15:41] LABS: Bacteria/HPF Rare-Few HPF (None Seen); CAUTI Indications for Culture Dysuria,urgency,freq; Clarity Hazy (Clear); RBC/HPF 0-3 HPF (0-3)
[2023-08-12 15:42] LABS: Pregnancy Test - Urine (BHCG) Negative (Negative); Pregu Control Background? CLEAR/WHITE (CLR/WHITE); Pregu Control Bar Appear? YES (CONTROL BAR); Specific Gravity 1.025 (1.002-1.036); Urine Culture Reflex No No
[2023-08-12 17:45] LABS: Hemoglobin 9.7 g/dL (12.0-16.0)
[2023-08-12 17:52] LABS: Hematocrit 30.1 % (36.0-47.0)
[2023-08-12 18:11] LABS: Troponin I 0.022 ng/mL (< 0.028)
[2023-08-12 20:53] LABS: Hemoglobin 8.9 g/dL (12.0-16.0)
[2023-08-12] MEDS ORDERED: Benzonatate 100 MG CAP ONE (20:53)
[2023-08-12] MEDS ORDERED: Azithromycin 250 MG TAB ONE (20:53)
[2023-08-12 21:05] LABS: Hematocrit 27.7 % (36.0-47.0)
[2023-08-12 21:30] LABS: Troponin I 0.016 ng/mL (< 0.028)
[2023-08-12] MEDS ORDERED: traMADol HCl 50 MG TAB ONE (22:05)
[2023-08-12] MEDS ORDERED: Acetaminophen/Codeine 30-300mg Tablet ONE (22:16)
== END 2023-08-12 22:26 | disposition home or self-care (01) ==
LOC: NAV ERS 13:59
DX: R07.9 Chest pain, unspecified (principal); D64.9 Anemia, unspecified; R06.09 Other forms of dyspnea; R10.30 Lower abdominal pain, unspecified; N28.9 Disorder of kidney and ureter, unspecified; E11.9 Type 2 diabetes mellitus without complications; I10 Essential (primary) hypertension; Z79.4 Long term (current) use of insulin
CPT/HCPCS: 36416; 71045; 74176; 80053; 81001; 81025; 83605; 84484; 85025; 87040; 93005; 96374; 96375; 96376; J2272; J2405; J7050

== ENCOUNTER 2023-10-25 09:58 | Emergency (ER) | payer OTHER | END 2023-10-25 10:54 | disposition home or self-care (01) | LOC: NAV ERS 09:58 | DX: M25.511 Pain in right shoulder (principal); E10.9 Type 1 diabetes mellitus without complications; Z79.4 Long term (current) use of insulin; I10 Essential (primary) hypertension | CPT/HCPCS: 99283 ==

== ENCOUNTER 2024-01-01 16:30 | Emergency (ER) | payer OTHER ==
[2024-01-01] MEDS ORDERED: Acetaminophen 500 MG TAB ONE (17:10)
[2024-01-01] MEDS ORDERED: Lorazepam 0.5 MG TAB ONE (17:11)
[2024-01-01] MEDS ORDERED: Ketorolac Tromethamine 30 MG (1 mL) VIAL ONE (17:57)
== END 2024-01-01 18:55 | disposition home or self-care (01) ==
LOC: NAV ERS 16:30
DX: F41.1 Generalized anxiety disorder (principal); F43.0 Acute stress reaction; G43.909 Migraine, unspecified, not intractable, without status migrainosus; H66.91 Otitis media, unspecified, right ear; E10.9 Type 1 diabetes mellitus without complications; I10 Essential (primary) hypertension; Z79.4 Long term (current) use of insulin
CPT/HCPCS: 93005; 96372; J1885

== ENCOUNTER 2024-01-16 13:01 | Emergency (ER) | payer OTHER ==
[2024-01-16] MEDS ORDERED: Ondansetron PF 4 MG/2 ML Vial ONE ×2 (13:44→15:29)
[2024-01-16] MEDS ORDERED: Ketorolac Tromethamine 30 MG (1 mL) VIAL ONE (13:44)
[2024-01-16] MEDS ORDERED: Sodium Chloride 0.9% 1,000 ML ONE (13:44)
[2024-01-16 13:57] LABS: #Basophils 0.1 thou/uL (0.0-0.2); #Eosinphils 0.2 thou/uL (0.0-0.7); #Lymphocytes 2.8 thou/uL (1.20-3.40); #Monocytes 0.4 thou/uL (0.11-0.59); %Basophils 1.2 % (0.0-1.0); %Eosinophils 3.1 % (0.0-10.0); %Lymphocytes 37.4 % (21.0-51.0); %Monocytes 5.3 % (0.0-10.0); Hematocrit 27.7 % (36.0-47.0); Hemoglobin 8.5 g/dL (12.0-16.0); Mean Corpuscular HGB CONC 30.5 g/dL (32.0-36.0); Mean Corpuscular Hemoglobin 25.4 pg (27.0-31.0); Mean Corpuscular Volume 83.2 fl (78.0-98.0); Mean Platelet Volume 9.4 fL (7.4-10.4); Platelet Count 178 10x3/uL (130-400); RBC Distribution Width 13.2 % (11.5-14.5); Red Blood Cell (RBC) Count 3.33 mill/uL (4.20-5.40); White Blood Cell (WBC) Count 7.5 10x3/uL (4.8-10.8)
[2024-01-16 14:18] LABS: ALT (SGPT) 19 U/L (8-55); AST (SGOT) 18 U/L (5-34); Alkaline Phosphatase 80 U/L (40-110); Anion Gap 16 mmol/L (10-20); BUN (Urea Nitrogen) 33 mg/dL (7.0-18.7); Bilirubin, Total 0.3 mg/dL (0.2-1.2); Calc. Creatinine Clearance 0 mL/min (70-130); Calcium 8.5 mg/dL (7.8-10.44); Carbon Dioxide 16 mmol/L (22-29); Chloride 109 mmol/L (98-107); Estimated GFR 26; Globulin 3.8 g/dL (2.4-3.5); Glucose 143 mg/dL (70-105); Potassium 4.8 mmol/L (3.5-5.1); Protein, Total 6.8 g/dL (6.0-8.3); Sodium 136 mmol/L (136-145); Troponin I 0.016 ng/mL (< 0.028)
[2024-01-16 14:53] LABS: BHCG - Serum Negative (NEGATIVE); Pregs Control Bar Appear? YES (CONTROL BAR)
[2024-01-16] MEDS ORDERED: fentaNYL 50 mcg/mL 1 mL Vial ONE (14:54)
[2024-01-16 16:10] LABS: Bilirubin Negative (Negative); Blood, Urine Small (Negative); Glucose, Urine (Dipstick) Negative (Negative); Ketone, Urine Negative (Negative); Leukocyte Negative (Negative); Nitrite Negative (Negative); Protein, Urine (Dipstick) > or equal to 300 mg/dL (Neg-Trace); Urobilinogen 0.2 mg/dL (Less than 2); pH, Urine 6.5 (5.0-9.0)
[2024-01-16 16:12] LABS: Bacteria/HPF Rare-Few HPF (None Seen); CAUTI Indications for Culture Pelvic or flank pain; Clarity Hazy (Clear); RBC/HPF 0-3 HPF (0-3); Squamous Epithelial 0-3 HPF (0-3); Urine Culture Reflex No No; WBC/HPF 0-3 HPF (0-3)
== END 2024-01-16 16:55 | disposition home or self-care (01) ==
LOC: NAV ERS 13:01
DX: R10.9 Unspecified abdominal pain (principal); D64.9 Anemia, unspecified; I12.9 Hypertensive chronic kidney disease with stage 1 through stage 4 chronic kidney disease, or unspecified chronic kidney disease; E10.22 Type 1 diabetes mellitus with diabetic chronic kidney disease; N18.30 Chronic kidney disease, stage 3 unspecified; Z79.4 Long term (current) use of insulin; Z79.82 Long term (current) use of aspirin
CPT/HCPCS: 74176; 80053; 81001; 84484; 84703; 85025; 93005; 96374; 96375; 96376; J1885; J2405; J3010; J7050

== ENCOUNTER 2024-01-24 11:42 | Emergency (ER) | payer OTHER ==
[2024-01-24] MEDS ORDERED: Acetaminophen 325 MG TAB ONE (12:24)
[2024-01-24 13:09] LABS: Influenza A by NAA Not Detected (NotDetected); Influenza B by NAA Not Detected (NotDetected); SARS-CoV-2 NAA Rapid Test Not Detected (NotDetected)
== END 2024-01-24 13:50 | disposition home or self-care (01) ==
LOC: NAV ERS 11:42
DX: J06.9 Acute upper respiratory infection, unspecified (principal); R00.0 Tachycardia, unspecified; I12.9 Hypertensive chronic kidney disease with stage 1 through stage 4 chronic kidney disease, or unspecified chronic kidney disease; E10.22 Type 1 diabetes mellitus with diabetic chronic kidney disease; N18.30 Chronic kidney disease, stage 3 unspecified; Z79.82 Long term (current) use of aspirin
CPT/HCPCS: 36416; 87081; 87430; 99283

== ENCOUNTER 2024-03-06 11:01 | Emergency (ER) | payer OTHER ==
[2024-03-06] MEDS ORDERED: Ondansetron PF 4 MG/2 ML Vial ONE (12:18)
[2024-03-06] MEDS ORDERED: Morphine 4 MG/ML VIAL ONE ×2 (12:18→16:53)
[2024-03-06] MEDS ORDERED: Pantoprazole 40 MG VIAL ONE (12:19)
[2024-03-06] MEDS ORDERED: Sodium Chloride 0.9% 1,000 ML ONE (12:19)
[2024-03-06 12:43] LABS: #Basophils 0.1 thou/uL (0.0-0.2); #Eosinphils 0.4 thou/uL (0.0-0.7); #Lymphocytes 2.6 thou/uL (1.20-3.40); #Monocytes 0.5 thou/uL (0.11-0.59); #Neutrophils 6.3 thou/uL (1.40-6.50); %Basophils 0.7 % (0.0-1.0); %Eosinophils 4.1 % (0.0-10.0); %Lymphocytes 26.6 % (21.0-51.0); %Neutrophils 63.7 % (42.0-75.0); Hematocrit 35.6 % (36.0-47.0); Hemoglobin 10.8 g/dL (12.0-16.0); Mean Corpuscular HGB CONC 30.5 g/dL (32.0-36.0); Mean Corpuscular Hemoglobin 24.6 pg (27.0-31.0); Mean Corpuscular Volume 80.7 fl (78.0-98.0); Mean Platelet Volume 8.7 fL (7.4-10.4); Platelet Count 129 10x3/uL (130-400); RBC Distribution Width 14.5 % (11.5-14.5); Red Blood Cell (RBC) Count 4.41 mill/uL (4.20-5.40); White Blood Cell (WBC) Count 9.8 10x3/uL (4.8-10.8)
[2024-03-06 12:53] LABS: Base Excess-Venous -5.9 mmol/L (-2.0 to 3.0); Bicarbonate (HCO3v) 18.1 mmol/L (22.0-28.0); CO2 Tension (PvCO2) 30.3 mmHg (42.0-51.0); Chloride 112 mmol/L (98-107); Hemoglobin - Calc 11.8 g/dL (12.0-16.0); Sodium 142 mmol/L (138-145); vO2 Saturation-calc 98.7 % (60.0-85.0)
[2024-03-06 13:01] LABS: ALT (SGPT) 13 U/L (8-55); AST (SGOT) 13 U/L (5-34); Alkaline Phosphatase 82 U/L (40-110); Anion Gap 14 mmol/L (10-20); BUN (Urea Nitrogen) 16 mg/dL (7.0-18.7); Bilirubin, Total 0.5 mg/dL (0.2-1.2); Calc. Creatinine Clearance 0 mL/min (70-130); Carbon Dioxide 16 mmol/L (22-29); Chloride 113 mmol/L (98-107); Estimated GFR 27; Glucose 137 mg/dL (70-105); Lipase 26 U/L (8-78); Potassium 3.7 mmol/L (3.5-5.1); Protein, Total 7.2 g/dL (6.0-8.3); Sodium 139 mmol/L (136-145)
[2024-03-06 13:03] LABS: Albumin 3.2 g/dL (3.5-5.0)
[2024-03-06] MEDS ORDERED: Promethazine HCl 25 MG/ML VIAL ONE (16:53)
[2024-03-06 21:06] LABS: Bilirubin Negative (Negative); Blood, Urine Trace (Negative); Clarity Clear (Clear); Glucose, Urine (Dipstick) 100 mg/dL (Negative); Ketone, Urine Trace mg/dL (Negative); Leukocyte Negative (Negative); Nitrite Negative (Negative); Protein, Urine (Dipstick) > or equal to 300 mg/dL (Neg-Trace); Urobilinogen 0.2 mg/dL (Less than 2); pH, Urine 8.5 (5.0-9.0)
[2024-03-06 21:15] LABS: Bacteria/HPF Rare-Few HPF (None Seen); CAUTI Indications for Culture Dysuria,urgency,freq; RBC/HPF 0-3 HPF (0-3); Squamous Epithelial 0-3 HPF (0-3); WBC/HPF 0-3 HPF (0-3)
[2024-03-06 21:16] LABS: Urine Culture Reflex No No
[2024-03-06] MEDS ORDERED: HYDROcodone/Acetaminophen 5/325 mg Tablet ONE (22:15)
[2024-03-06] MEDS ORDERED: Pantoprazole DR 40 MG TAB ONE (22:15)
== END 2024-03-06 22:24 | disposition home or self-care (01) ==
LOC: NAV ERS 11:01
DX: R10.13 Epigastric pain (principal); E86.0 Dehydration; R11.2 Nausea with vomiting, unspecified; I12.9 Hypertensive chronic kidney disease with stage 1 through stage 4 chronic kidney disease, or unspecified chronic kidney disease; E10.22 Type 1 diabetes mellitus with diabetic chronic kidney disease; N18.30 Chronic kidney disease, stage 3 unspecified
CPT/HCPCS: 71045; 80053; 81001; 82010; 82330; 82435; 82803; 83690; 84132; 84295; 85014; 85025; 96372; 96374; 96375; J2272; J2405; J2470; J2550; J7030

== ENCOUNTER 2024-04-22 15:23 | Emergency (ER) | payer OTHER ==
[2024-04-22] MEDS ORDERED: Ondansetron PF 4 MG/2 ML Vial ONE ×2 (15:47→18:11)
[2024-04-22] MEDS ORDERED: Pantoprazole 40 MG VIAL ONE (15:47)
[2024-04-22] MEDS ORDERED: Sodium Chloride 0.9% 1,000 ML ONE (15:47)
[2024-04-22 16:22] LABS: ALT (SGPT) 73 U/L (8-55); AST (SGOT) 24 U/L (5-34); Albumin 3.3 g/dL (3.5-5.0); Alkaline Phosphatase 108 U/L (40-110); Anion Gap 15 mmol/L (10-20); BUN (Urea Nitrogen) 40 mg/dL (7.0-18.7); Bilirubin, Total 0.5 mg/dL (0.2-1.2); Calc. Creatinine Clearance 0 mL/min (70-130); Calcium 9.3 mg/dL (7.8-10.44); Carbon Dioxide 17 mmol/L (22-29); Chloride 108 mmol/L (98-107); Estimated GFR 21; Globulin 4.4 g/dL (2.4-3.5); Glucose 118 mg/dL (70-105); Lipase 38 U/L (8-78); Potassium 4.4 mmol/L (3.5-5.1); Protein, Total 7.7 g/dL (6.0-8.3); Sodium 136 mmol/L (136-145)
[2024-04-22 16:24] LABS: #Basophils 0.1 thou/uL (0.0-0.2); #Eosinophils 0.3 thou/uL (0.0-0.7); #Lymphocytes 2.1 thou/uL (1.20-3.40); #Monocytes 0.3 thou/uL (0.11-0.59); #Neutrophils 4.4 thou/uL (1.40-6.50); %Basophils 1.1 % (0.0-1.0); %Eosinophils 3.9 % (0.0-10.0); %Lymphocytes 28.9 % (21.0-51.0); %Monocytes 4.6 % (0.0-10.0); %Neutrophils 61.5 % (42.0-75.0); Hematocrit 34.5 % (36.0-47.0); Hemoglobin 11.1 g/dL (12.0-16.0); Mean Corpuscular HGB CONC 32.1 g/dL (32.0-36.0); Mean Corpuscular Hemoglobin 25.9 pg (27.0-31.0); Mean Corpuscular Volume 80.6 fl (78.0-98.0); Mean Platelet Volume 9.2 fL (7.4-10.4); Platelet Count 215 10x3/uL (130-400); RBC Distribution Width 16.2 % (11.5-14.5); Red Blood Cell (RBC) Count 4.28 mill/uL (4.20-5.40); White Blood Cell (WBC) Count 7.2 10x3/uL (4.8-10.8)
[2024-04-22] MEDS ORDERED: Morphine 2 MG/ML VIAL ONE (16:35)
[2024-04-22 17:37] LABS: Bilirubin Negative (Negative); Blood, Urine Trace (Negative); Clarity Clear (Clear); Glucose, Urine (Dipstick) Negative (Negative); Ketone, Urine Negative (Negative); Leukocyte Negative (Negative); Nitrite Negative (Negative); Protein, Urine (Dipstick) > or equal to 300 mg/dL (Neg-Trace); Urobilinogen 0.2 mg/dL (Less than 2)
[2024-04-22 17:37] LABS: BHCG - Serum Negative (NEGATIVE); Pregs Control Bar Appear? YES (CONTROL BAR)
[2024-04-22] MEDS ORDERED: Morphine 4 MG/ML VIAL ONE (17:55)
[2024-04-22 18:07] LABS: Bacteria/HPF 2+ HPF (None Seen); CAUTI Indications for Culture Pelvic or flank pain; Epithelial Cast 0-3 LPF (None Seen); Squamous Epithelial 0-3 HPF (0-3); Transitional Epithelial 0-3 HPF (None Seen)
[2024-04-22 18:08] LABS: Urine Culture Reflex No No
[2024-04-22] MEDS ORDERED: Mag-Al Plus 1200/1200/120 MG (30 mL) UDCUP ONE (18:09)
[2024-04-22] MEDS ORDERED: Sucralfate 1 GM/10 ML UDCUP ONE (18:10)
[2024-04-22] MEDS ORDERED: Lidocaine Viscous Sol 2% 15 ml UD Cup ONE (18:10)
[2024-04-22] MEDS ORDERED: Sodium Chloride 0.9% 100 ML ONE (18:26)
[2024-04-22] MEDS ORDERED: cefTRIAXone (ROCEPHIN) 1 GM VIAL ONE (18:26)
[2024-04-22] MEDS ORDERED: Metoclopramide HCl 10 MG (2 mL) VIAL ONE (18:44)
[2024-04-22] MEDS ORDERED: Amlodipine 5 MG TAB ONE (19:20)
[2024-04-22 19:22] LABS: Amphetamine Not Detected (NotDetected); Barbiturates Screen Not Detected (NotDetected); Benzodiazepine Screen Not Detected (NotDetected); Cocaine Metabolite Screen Not Detected (NotDetected); Methadone Not Detected (NotDetected); Methamphetamine Not Detected (NotDetected); Opiate Screen Detected (NotDetected); Oxycodone Screen Not Detected (NotDetected); Phencyclidine (PCP) Not Detected (NotDetected); THC/Cannabinoid Screen Not Detected (NotDetected); Tricyclic Screen Not Detected (NotDetected)
== END 2024-04-22 20:50 | disposition home or self-care (01) ==
LOC: NAV ERS 15:23
DX: A08.4 Viral intestinal infection, unspecified (principal); K29.70 Gastritis, unspecified, without bleeding; N39.0 Urinary tract infection, site not specified; E10.9 Type 1 diabetes mellitus without complications; I10 Essential (primary) hypertension; E78.5 Hyperlipidemia, unspecified; Z79.82 Long term (current) use of aspirin; Z79.899 Other long term (current) drug therapy
CPT/HCPCS: 74176; 80053; 80306; 81001; 83690; 84703; 85025; 87086; 96361; 96365; 96375; 96376; J0696; J2272; J2405; J2470; J2765; J7030

== ENCOUNTER 2024-04-27 11:57 | Emergency (ER) | payer MEDICAID, OTHER, SELFPAY ==
[2024-04-27 13:19] LABS: #Basophils 0.1 thou/uL (0.0-0.2); #Eosinophils 0.4 thou/uL (0.0-0.7); #Lymphocytes 2.8 thou/uL (1.20-3.40); #Monocytes 0.4 thou/uL (0.11-0.59); #Neutrophils 4.2 thou/uL (1.40-6.50); %Basophils 0.9 % (0.0-1.0); %Eosinophils 5.4 % (0.0-10.0); %Lymphocytes 35.7 % (21.0-51.0); %Monocytes 4.9 % (0.0-10.0); %Neutrophils 53.1 % (42.0-75.0); Hematocrit 34.7 % (36.0-47.0); Hemoglobin 10.9 g/dL (12.0-16.0); Mean Corpuscular HGB CONC 31.4 g/dL (32.0-36.0); Mean Corpuscular Hemoglobin 25.2 pg (27.0-31.0); Mean Corpuscular Volume 80.4 fl (78.0-98.0); Mean Platelet Volume 10.2 fL (7.4-10.4); Platelet Count 218 10x3/uL (130-400); RBC Distribution Width 15.9 % (11.5-14.5); Red Blood Cell (RBC) Count 4.31 mill/uL (4.20-5.40); White Blood Cell (WBC) Count 7.9 10x3/uL (4.8-10.8)
[2024-04-27 13:25] LABS: Phosphorus 3.3 mg/dL (2.3-4.7)
[2024-04-27 13:27] LABS: ALT (SGPT) 41 U/L (8-55); AST (SGOT) 17 U/L (5-34); Albumin 3.3 g/dL (3.5-5.0); Alkaline Phosphatase 115 U/L (40-110); Anion Gap 11 mmol/L (10-20); BUN (Urea Nitrogen) 36 mg/dL (7.0-18.7); Bilirubin, Total 0.4 mg/dL (0.2-1.2); Calc. Creatinine Clearance 0 mL/min (70-130); Carbon Dioxide 19 mmol/L (22-29); Chloride 110 mmol/L (98-107); Estimated GFR 25; Glucose 212 mg/dL (70-105); Lipase 84 U/L (8-78); Magnesium 1.7 mg/dL (1.6-2.6); Potassium 4.3 mmol/L (3.5-5.1); Protein, Total 7.3 g/dL (6.0-8.3); Sodium 136 mmol/L (136-145); Troponin I 0.022 ng/mL (< 0.028)
[2024-04-27 13:34] LABS: Base Excess-Venous -6.1 mmol/L (-2.0 to 3.0); CO2 Tension (PvCO2) 54.1 mmHg (42.0-51.0); Calcium, Ionized 1.26 mmol/L (1.15-1.33); Chloride 109 mmol/L (98-107); Hemoglobin - Calc 11.8 g/dL (12.0-16.0); Potassium 4.2 mmol/L (3.5-5.1); Sodium 140 mmol/L (138-145); T. Carbon Dioxide 23.7 mmol/L (22.0-28.0); vO2 Saturation-calc 54.8 % (60.0-85.0)
[2024-04-27] MEDS ORDERED: Morphine 4 MG/ML VIAL ONE (13:48)
[2024-04-27] MEDS ORDERED: Metoclopramide HCl 10 MG (2 mL) VIAL ONE (13:48)
[2024-04-27 15:18] LABS: Bilirubin Negative (Negative); Blood, Urine Trace (Negative); Clarity Clear (Clear); Glucose, Urine (Dipstick) 250 mg/dL (Negative); Ketone, Urine Negative (Negative); Leukocyte Negative (Negative); Nitrite Negative (Negative); Protein, Urine (Dipstick) > or equal to 300 mg/dL (Neg-Trace); Urobilinogen 0.2 mg/dL (Less than 2); pH, Urine 8.5 (5.0-9.0)
[2024-04-27 15:19] LABS: CAUTI Indications for Culture Dysuria,urgency,freq; RBC/HPF 0-3 HPF (0-3); WBC/HPF None Seen HPF (0-3)
[2024-04-27 15:20] LABS: Urine Culture Reflex No No
== END 2024-04-27 17:00 | disposition home or self-care (01) ==
LOC: NAV ERS 11:57
DX: E86.0 Dehydration (principal); R11.2 Nausea with vomiting, unspecified; R10.13 Epigastric pain; I12.9 Hypertensive chronic kidney disease with stage 1 through stage 4 chronic kidney disease, or unspecified chronic kidney disease; N18.30 Chronic kidney disease, stage 3 unspecified; E11.22 Type 2 diabetes mellitus with diabetic chronic kidney disease; Z79.4 Long term (current) use of insulin
CPT/HCPCS: 36416; 71045; 80053; 81001; 82010; 82330; 82435; 82803; 83690; 83735; 84100; 84132; 84295; 84484; 85014; 85025; 96361; 96374; 96375; J2272; J2765

== ENCOUNTER 2024-06-19 13:15 | Emergency (ER) | payer OTHER ==
[2024-06-19] MEDS ORDERED: Ondansetron PF 4 MG/2 ML Vial ONE (14:23)
[2024-06-19] MEDS ORDERED: Sodium Chloride 0.9% 1,000 ML ONE (14:23)
[2024-06-19 14:35] LABS: #Basophils 0.1 thou/uL (0.0-0.2); #Eosinophils 0.1 thou/uL (0.0-0.7); #Lymphocytes 1.5 thou/uL (1.20-3.40); #Monocytes 0.2 thou/uL (0.11-0.59); #Neutrophils 4.7 thou/uL (1.40-6.50); %Basophils 0.8 % (0.0-1.0); %Eosinophils 1.9 % (0.0-10.0); %Monocytes 3.6 % (0.0-10.0); %Neutrophils 70.7 % (42.0-75.0); Hematocrit 30.7 % (36.0-47.0); Hemoglobin 9.7 g/dL (12.0-16.0); Mean Corpuscular HGB CONC 31.7 g/dL (32.0-36.0); Mean Corpuscular Hemoglobin 26.1 pg (27.0-31.0); Mean Corpuscular Volume 82.3 fl (78.0-98.0); Mean Platelet Volume 9.3 fL (7.4-10.4); Platelet Count 192 10x3/uL (130-400); RBC Distribution Width 17.2 % (11.5-14.5); Red Blood Cell (RBC) Count 3.73 mill/uL (4.20-5.40); White Blood Cell (WBC) Count 6.6 10x3/uL (4.8-10.8)
[2024-06-19] MEDS ORDERED: Dicyclomine 20 MG/2 ML VIAL ONE (14:43)
[2024-06-19] MEDS ORDERED: Pantoprazole 40 MG VIAL ONE (14:43)
[2024-06-19 14:51] LABS: Phosphorus 2.5 mg/dL (2.3-4.7)
[2024-06-19 14:52] LABS: Bicarbonate (HCO3v) 19.6 mmol/L (22.0-28.0); CO2 Tension (PvCO2) 43.4 mmHg (42.0-51.0); Calcium, Ionized 1.23 mmol/L (1.15-1.33); Chloride 113 mmol/L (98-107); Hemoglobin - Calc 10.5 g/dL (12.0-16.0); Potassium 4.5 mmol/L (3.5-5.1); Sodium 142 mmol/L (138-145); vO2 Saturation-calc 58.8 % (60.0-85.0)
[2024-06-19 14:53] LABS: ALT (SGPT) 28 U/L (8-55); AST (SGOT) 16 U/L (5-34); Albumin 3.1 g/dL (3.5-5.0); Alkaline Phosphatase 99 U/L (40-110); Anion Gap 15 mmol/L (10-20); BUN (Urea Nitrogen) 25 mg/dL (7.0-18.7); Bilirubin, Total 0.6 mg/dL (0.2-1.2); Calc. Creatinine Clearance 0 mL/min (70-130); Calcium 8.6 mg/dL (7.8-10.44); Carbon Dioxide 16 mmol/L (22-29); Chloride 111 mmol/L (98-107); Estimated GFR 26; Globulin 4.2 g/dL (2.4-3.5); Glucose 156 mg/dL (70-105); Lipase 21 U/L (8-78); Magnesium 1.5 mg/dL (1.6-2.6); Potassium 4.3 mmol/L (3.5-5.1); Protein, Total 7.3 g/dL (6.0-8.3); Sodium 138 mmol/L (136-145)
[2024-06-19] MEDS ORDERED: Promethazine HCl 25 MG/ML VIAL ONE ×2 (15:26→16:10)
[2024-06-19] MEDS ORDERED: Dextrose 5 % And 0.9 % NaCl 1,000 ML ONE ×2 (15:49→18:50)
[2024-06-19 17:30] LABS: Bilirubin Negative (Negative); Blood, Urine Trace (Negative); Clarity Clear (Clear); Glucose, Urine (Dipstick) 250 mg/dL (Negative); Ketone, Urine Trace mg/dL (Negative); Leukocyte Negative (Negative); Nitrite Negative (Negative); Protein, Urine (Dipstick) > or equal to 300 mg/dL (Neg-Trace); Urobilinogen 0.2 mg/dL (Less than 2); pH, Urine 8.5 (5.0-9.0)
[2024-06-19 17:46] LABS: Base Excess-Venous -8.7 mmol/L (-2.0 to 3.0); Bicarbonate (HCO3v) 17.5 mmol/L (22.0-28.0); CO2 Tension (PvCO2) 37.9 mmHg (42.0-51.0); Calcium, Ionized 1.18 mmol/L (1.15-1.33); Chloride 114 mmol/L (98-107); Hemoglobin - Calc 10.1 g/dL (12.0-16.0); Potassium 4.6 mmol/L (3.5-5.1); Sodium 143 mmol/L (138-145); T. Carbon Dioxide 18.7 mmol/L (22.0-28.0); vO2 Saturation-calc 72.7 % (60.0-85.0)
[2024-06-19 17:50] LABS: Anion Gap 12 mmol/L (10-20); BUN (Urea Nitrogen) 22 mg/dL (7.0-18.7); Calc. Creatinine Clearance 0 mL/min (70-130); Carbon Dioxide 15 mmol/L (22-29); Chloride 115 mmol/L (98-107); Estimated GFR 27; Glucose 360 mg/dL (70-105); Potassium 4.4 mmol/L (3.5-5.1); Sodium 138 mmol/L (136-145)
[2024-06-19 18:13] LABS: Bacteria/HPF 1+ HPF (None Seen); CAUTI Indications for Culture Pelvic or flank pain; Epithelial Cast 0-3 LPF (None Seen); RBC/HPF 0-3 HPF (0-3); Transitional Epithelial 0-3 HPF (None Seen); Urine Culture Reflex No No
[2024-06-19] MEDS ORDERED: Insulin Regular, Human 100 UNIT/ML 10 ML VIAL ONE (18:50)
[2024-06-19] MEDS ORDERED: INSULIN REGULAR IN 0.9 % NACL 100 ML ONE (18:50)
[2024-06-19] MEDS ORDERED: D5 1/2 NS w/20 mEq KCL 1,000 ML ONE (19:16)
== END 2024-06-19 20:39 | disposition short-term general hospital (02) ==
LOC: NAV ERS 13:15
DX: E10.10 Type 1 diabetes mellitus with ketoacidosis without coma (principal); I10 Essential (primary) hypertension; I12.9 Hypertensive chronic kidney disease with stage 1 through stage 4 chronic kidney disease, or unspecified chronic kidney disease; E10.22 Type 1 diabetes mellitus with diabetic chronic kidney disease; N18.30 Chronic kidney disease, stage 3 unspecified; Z79.899 Other long term (current) drug therapy; Z79.82 Long term (current) use of aspirin
CPT/HCPCS: 80053; 81001; 82010; 82330; 82803; 83690; 83735; 84100; 85025; 96361; 96365; 96366; 96372; 96375; J1815; J2405; J2470; J2550; J3480; J7030; J7042

== ENCOUNTER 2024-07-16 13:50 | Emergency (ER) | payer OTHER, MEDICAID ==
[2024-07-16 15:15] LABS: Hematocrit 27.9 % (36.0-47.0); Hemoglobin 8.8 g/dL (12.0-16.0); Mean Corpuscular HGB CONC 31.6 g/dL (32.0-36.0); Mean Corpuscular Hemoglobin 26.3 pg (27.0-31.0); Mean Corpuscular Volume 83.2 fl (78.0-98.0); Mean Platelet Volume 9.2 fL (7.4-10.4); Platelet Count 185 10x3/uL (130-400); RBC Distribution Width 14.5 % (11.5-14.5); Red Blood Cell (RBC) Count 3.35 mill/uL (4.20-5.40); White Blood Cell (WBC) Count 8.3 10x3/uL (4.8-10.8)
[2024-07-16 15:17] LABS: Troponin I 0.021 ng/mL (< 0.028)
[2024-07-16 15:24] LABS: Phosphorus 3.4 mg/dL (2.3-4.7)
[2024-07-16 15:27] LABS: ALT (SGPT) 35 U/L (8-55); AST (SGOT) 24 U/L (5-34); Albumin 3.1 g/dL (3.5-5.0); Alkaline Phosphatase 88 U/L (40-110); Anion Gap 15 mmol/L (10-20); BUN (Urea Nitrogen) 40 mg/dL (7.0-18.7); Bilirubin, Total 0.3 mg/dL (0.2-1.2); Calc. Creatinine Clearance 0 mL/min (70-130); Calcium 8.7 mg/dL (7.8-10.44); Carbon Dioxide 17 mmol/L (22-29); Chloride 112 mmol/L (98-107); Estimated GFR 21; Globulin 3.7 g/dL (2.4-3.5); Glucose 159 mg/dL (70-105); Lipase 73 U/L (8-78); Magnesium 1.6 mg/dL (1.6-2.6); Potassium 4.6 mmol/L (3.5-5.1); Protein, Total 6.8 g/dL (6.0-8.3); Sodium 139 mmol/L (136-145)
[2024-07-16] MEDS ORDERED: Ondansetron PF 4 MG/2 ML Vial ONE (15:38)
[2024-07-16 15:58] LABS: Base Excess-Venous -7.6 mmol/L (-2.0 to 3.0); Bicarbonate (HCO3v) 19.6 mmol/L (22.0-28.0); CO2 Tension (PvCO2) 45.7 mmHg (42.0-51.0); Calcium, Ionized 1.24 mmol/L (1.15-1.33); Chloride 113 mmol/L (98-107); Hemoglobin - Calc 11.1 g/dL (12.0-16.0); Potassium 4.8 mmol/L (3.5-5.1); Sodium 145 mmol/L (138-145)
[2024-07-16 16:13] LABS: MDiff Complete? YES
[2024-07-16 16:16] LABS: Eosinophils 5 % (0-10); Lymphocytes 52 % (21-51); Monocytes 2 % (0-10); Neutrophil 41 % (42-75)
[2024-07-16 16:20] LABS: Anisocytosis SLIGHT = 6-15 cells (100X) (0-5/hpf); Hypochromia SLIGHT = 6-15 cells (100X) (0-5/hpf); Poikilocytosis SLIGHT = 6-15 cells (100X) (0-5/hpf); Schistocytes SLIGHT = 2-5 cells (100X) (0-1/hpf)
[2024-07-16] MEDS ORDERED: fentaNYL 50 mcg/mL 1 mL Vial ONE (16:20)
[2024-07-16 16:21] LABS: Bite Cells SLIGHT = 2-5 cells (100X) (0-1/hpf); Platelet Adequacy Comment Appears Adequate; Tear Drops SLIGHT = 2-5 cells (100X) (0-1/hpf)
[2024-07-16] MEDS ORDERED: Metoprolol Tartrate 25 MG TAB ONE (16:25)
[2024-07-16] MEDS ORDERED: Sodium Chloride 0.9% 1,000 ML ONE (16:58)
== END 2024-07-16 18:53 | disposition home or self-care (01) ==
LOC: NAV ERS 13:50
DX: E86.0 Dehydration (principal); I12.9 Hypertensive chronic kidney disease with stage 1 through stage 4 chronic kidney disease, or unspecified chronic kidney disease; N18.30 Chronic kidney disease, stage 3 unspecified; E10.22 Type 1 diabetes mellitus with diabetic chronic kidney disease; E78.5 Hyperlipidemia, unspecified; Z79.82 Long term (current) use of aspirin; Z79.899 Other long term (current) drug therapy
CPT/HCPCS: 36416; 71045; 80053; 82010; 82330; 82435; 82803; 83605; 83690; 83735; 84100; 84132; 84295; 84484; 85014; 85025; 87428; 93005; 94760; 96361; 96374; 96375; J2405; J3010; J7030

== ENCOUNTER 2025-02-05 12:05 | Emergency (ER) | payer OTHER ==
[2025-02-05 13:23] LABS: #Basophils 0.1 thou/uL (0.0-0.2); #Eosinophils 0.3 thou/uL (0.0-0.7); #Lymphocytes 1.8 thou/uL (1.20-3.40); #Monocytes 0.5 thou/uL (0.11-0.59); #Neutrophils 5.3 thou/uL (1.40-6.50); %Basophils 0.8 % (0.0-1.0); %Eosinophils 4.1 % (0.0-10.0); %Lymphocytes 22.0 % (21.0-51.0); %Monocytes 6.6 % (0.0-10.0); %Neutrophils 66.6 % (42.0-75.0); Hematocrit 25.9 % (36.0-47.0); Hemoglobin 8.4 g/dL (12.0-16.0); Mean Corpuscular Hemoglobin 27.2 pg (27.0-31.0); Mean Corpuscular Volume 84.1 fl (78.0-98.0); Platelet Count 181 10x3/uL (130-400); Red Blood Cell (RBC) Count 3.08 mill/uL (4.20-5.40); White Blood Cell (WBC) Count 8.0 10x3/uL (4.8-10.8)
[2025-02-05 13:33] LABS: BHCG - Serum Negative (NEGATIVE); Pregs Control Bar Appear? YES (CONTROL BAR)
[2025-02-05] MEDS ORDERED: hydrALAZINE 20 MG/ML VIAL ONE (13:51)
[2025-02-05] MEDS ORDERED: diphenhydrAMINE 50 MG/ML VIAL ONE (13:51)
[2025-02-05] MEDS ORDERED: Ondansetron PF 4 MG/2 ML Vial ONE (13:55)
[2025-02-05 14:03] LABS: Albumin 3.0 g/dL (3.1-4.5); Alkaline Phosphatase 59 U/L (40-110); Anion Gap 14 mmol/L (10-20); Calcium 8.6 mg/dL (7.8-10.44); Carbon Dioxide 22 mmol/L (22-29); Chloride 106 mmol/L (98-107); Globulin 3.6 g/dL (2.4-3.5); Glucose 109 mg/dL (70-105); Potassium 3.9 mmol/L (3.5-5.1); Sodium 138 mmol/L (136-145)
[2025-02-05 14:11] LABS: Glucose, Urine (Dipstick) 100 mg/dL (Negative); Leukocyte Negative (Negative); Protein, Urine (Dipstick) > or equal to 300 mg/dL (Neg-Trace); Specific Gravity, Urine 1.020 (1.005-1.030)
[2025-02-05 14:12] LABS: CAUTI Indications for Culture Alt mental st,lethar; RBC/HPF 0-3 HPF (0-3); WBC/HPF None Seen HPF (0-3)
[2025-02-05 14:13] LABS: Urine Culture Reflex No No
[2025-02-05 14:15] LABS: ALT (SGPT) 21 U/L (Less than 34); AST (SGOT) 21 U/L (11-34); BUN (Urea Nitrogen) 36 mg/dL (7.0-18.7); Bilirubin, Total 0.3 mg/dL (0.3-1.2); Calc. Creatinine Clearance 0 mL/min (70-130); Lipase 26 U/L (8-78)
[2025-02-05 14:23] LABS: Troponin I 0.020 ng/mL (< 0.028)
== END 2025-02-05 14:44 | disposition home or self-care (01) ==
LOC: NAV ERS 12:05
DX: D64.9 Anemia, unspecified (principal); M79.10 Myalgia, unspecified site; I12.9 Hypertensive chronic kidney disease with stage 1 through stage 4 chronic kidney disease, or unspecified chronic kidney disease; E10.22 Type 1 diabetes mellitus with diabetic chronic kidney disease; N18.30 Chronic kidney disease, stage 3 unspecified; E10.40 Type 1 diabetes mellitus with diabetic neuropathy, unspecified
CPT/HCPCS: 71045; 80053; 81001; 83690; 83880; 84484; 84703; 85025; 93005; 96374; 96375; J0360; J1200; J2270; J2405

== ENCOUNTER 2025-02-08 13:19 | Emergency (ER) | payer OTHER ==
[2025-02-08 14:20] LABS: Hematocrit 25.8 % (36.0-47.0); Hemoglobin 8.2 g/dL (12.0-16.0); Mean Corpuscular Hemoglobin 27.1 pg (27.0-31.0); Mean Corpuscular Volume 84.6 fl (78.0-98.0); Platelet Count 213 10x3/uL (130-400); Red Blood Cell (RBC) Count 3.05 mill/uL (4.20-5.40); White Blood Cell (WBC) Count 8.9 10x3/uL (4.8-10.8)
[2025-02-08 14:23] LABS: MDiff Complete? YES
[2025-02-08 14:30] LABS: ALT (SGPT) 21 U/L (Less than 34); AST (SGOT) 26 U/L (11-34); Albumin 3.0 g/dL (3.1-4.5); Alkaline Phosphatase 56 U/L (40-110); Anion Gap 18 mmol/L (10-20); BUN (Urea Nitrogen) 49 mg/dL (7.0-18.7); Bilirubin, Total 0.3 mg/dL (0.3-1.2); Calc. Creatinine Clearance 0 mL/min (70-130); Calcium 8.5 mg/dL (7.8-10.44); Carbon Dioxide 19 mmol/L (22-29); Chloride 107 mmol/L (98-107); Globulin 3.6 g/dL (2.4-3.5); Glucose 138 mg/dL (70-105); Potassium 5.0 mmol/L (3.5-5.1); Sodium 139 mmol/L (136-145)
[2025-02-08 14:32] LABS: Troponin I 0.015 ng/mL (< 0.028)
[2025-02-08] MEDS ORDERED: Furosemide 40 MG (4 mL) VIAL ONE (15:23)
== END 2025-02-08 17:59 | disposition short-term general hospital (02) ==
LOC: NAV ERS 13:19
DX: I13.2 Hypertensive heart and chronic kidney disease with heart failure and with stage 5 chronic kidney disease, or end stage renal disease (principal); I50.9 Heart failure, unspecified; E10.22 Type 1 diabetes mellitus with diabetic chronic kidney disease; N18.6 End stage renal disease; E10.40 Type 1 diabetes mellitus with diabetic neuropathy, unspecified; Z79.899 Other long term (current) drug therapy; Z79.82 Long term (current) use of aspirin; Z79.4 Long term (current) use of insulin
CPT/HCPCS: 71046; 80053; 83880; 84484; 85025; 93005; 94760; 96374; 96375; J1940; J2270

== ENCOUNTER 2025-05-12 13:45 | Emergency (ER) | payer OTHER ==
[2025-05-12] MEDS ORDERED: Ondansetron PF 4 MG/2 ML Vial ONE ×2 (14:52→23:25)
[2025-05-12] MEDS ORDERED: Ketorolac Tromethamine 30 MG (1 mL) VIAL ONE (14:52)
[2025-05-12] MEDS ORDERED: Pantoprazole 40 MG VIAL ONE (14:53)
[2025-05-12 14:55] LABS: #Basophils 0.2 thou/uL (0.0-0.2); #Eosinophils 0.3 thou/uL (0.0-0.7); #Lymphocytes 2.9 thou/uL (1.20-3.40); #Monocytes 0.4 thou/uL (0.11-0.59); #Neutrophils 3.7 thou/uL (1.40-6.50); %Basophils 3.1 % (0.0-1.0); %Eosinophils 4.5 % (0.0-10.0); %Lymphocytes 38.4 % (21.0-51.0); %Monocytes 5.0 % (0.0-10.0); %Neutrophils 48.9 % (42.0-75.0); Hematocrit 31.3 % (36.0-47.0); Hemoglobin 10.0 g/dL (12.0-16.0); Mean Corpuscular Hemoglobin 27.8 pg (27.0-31.0); Mean Corpuscular Volume 87.2 fl (78.0-98.0); Platelet Count 170 10x3/uL (130-400); Red Blood Cell (RBC) Count 3.60 mill/uL (4.20-5.40); White Blood Cell (WBC) Count 7.5 10x3/uL (4.8-10.8)
[2025-05-12 15:16] LABS: ALT (SGPT) 22 U/L (Less than 34); AST (SGOT) 22 U/L (11-34); Albumin 4.0 g/dL (3.1-4.5); Alkaline Phosphatase 62 U/L (40-110); Anion Gap 18 mmol/L (10-20); BUN (Urea Nitrogen) 22 mg/dL (7.0-18.7); Bilirubin, Total 0.4 mg/dL (0.3-1.2); Calc. Creatinine Clearance 0 mL/min (70-130); Calcium 8.9 mg/dL (7.8-10.44); Carbon Dioxide 25 mmol/L (22-29); Chloride 98 mmol/L (98-107); Globulin 4.0 g/dL (2.4-3.5); Glucose 179 mg/dL (70-105); Lipase 59 U/L (8-78); Potassium 3.7 mmol/L (3.5-5.1); Sodium 137 mmol/L (136-145)
[2025-05-12 18:50] LABS: BHCG - Serum Negative (NEGATIVE); Pregs Control Bar Appear? YES (CONTROL BAR)
[2025-05-12] MEDS ORDERED: Guaifenesin DM 100-10/5 ML UDCUP ONE (23:19)
[2025-05-13 06:29] LABS: #Basophils 0.1 thou/uL (0.0-0.2); #Eosinophils 0.3 thou/uL (0.0-0.7); #Lymphocytes 2.7 thou/uL (1.20-3.40); #Monocytes 0.3 thou/uL (0.11-0.59); #Neutrophils 2.3 thou/uL (1.40-6.50); %Basophils 1.8 % (0.0-1.0); %Eosinophils 5.7 % (0.0-10.0); %Lymphocytes 47.0 % (21.0-51.0); %Monocytes 4.9 % (0.0-10.0); %Neutrophils 40.7 % (42.0-75.0); Hematocrit 27.3 % (36.0-47.0); Hemoglobin 8.6 g/dL (12.0-16.0); Mean Corpuscular Hemoglobin 27.5 pg (27.0-31.0); Mean Corpuscular Volume 86.7 fl (78.0-98.0); Platelet Count 145 10x3/uL (130-400); Red Blood Cell (RBC) Count 3.15 mill/uL (4.20-5.40); White Blood Cell (WBC) Count 5.7 10x3/uL (4.8-10.8)
[2025-05-13 06:37] LABS: ALT (SGPT) 20 U/L (Less than 34); AST (SGOT) 22 U/L (11-34); Albumin 3.5 g/dL (3.1-4.5); Alkaline Phosphatase 53 U/L (40-110); Anion Gap 16 mmol/L (10-20); BUN (Urea Nitrogen) 27 mg/dL (7.0-18.7); Bilirubin, Total 0.3 mg/dL (0.3-1.2); Calc. Creatinine Clearance 0 mL/min (70-130); Calcium 8.4 mg/dL (7.8-10.44); Carbon Dioxide 27 mmol/L (22-29); Chloride 100 mmol/L (98-107); Globulin 3.5 g/dL (2.4-3.5); Glucose 195 mg/dL (70-105); Potassium 3.5 mmol/L (3.5-5.1); Sodium 139 mmol/L (136-145)
[2025-05-13] MEDS ORDERED: Ondansetron PF 4 MG/2 ML Vial ONE (07:34)
[2025-05-13] MEDS ORDERED: Pantoprazole 40 MG VIAL ONE (08:20)
[2025-05-13] MEDS ORDERED: Metoclopramide HCl 10 MG (2 mL) VIAL ONE ×2 (08:53→13:52)
[2025-05-13 10:04] LABS: Bacteria/HPF 1+ HPF (None Seen); CAUTI Indications for Culture Pelvic or flank pain; Glucose, Urine (Dipstick) 100 mg/dL (Negative); Leukocyte Negative (Negative); Protein, Urine (Dipstick) > or equal to 300 mg/dL (Neg-Trace); RBC/HPF 0-3 HPF (0-3); Specific Gravity, Urine 1.020 (1.005-1.030)
[2025-05-13 10:05] LABS: Urine Culture Reflex No No
[2025-05-13 10:10] LABS: Cocaine Metabolite Screen Negative (Negative); THC/Cannabinoid Screen Negative (Negative); Tricyclic Screen Negative (Negative)
== END 2025-05-12 15:22 | disposition short-term general hospital (02) ==
LOC: NAV ERS 13:45
DX: R10.9 Unspecified abdominal pain (principal); I12.9 Hypertensive chronic kidney disease with stage 1 through stage 4 chronic kidney disease, or unspecified chronic kidney disease; N18.30 Chronic kidney disease, stage 3 unspecified; E10.22 Type 1 diabetes mellitus with diabetic chronic kidney disease; E10.40 Type 1 diabetes mellitus with diabetic neuropathy, unspecified; Z79.4 Long term (current) use of insulin; Z79.82 Long term (current) use of aspirin; Z79.899 Other long term (current) drug therapy
CPT/HCPCS: 36416; 74176; 80053; 80306; 81001; 83690; 84703; 85025; 96361; 96365; 96366; 96375; 96376; J1885; J2270; J2272; J2405; J2470; J2765; J7030

== ENCOUNTER 2025-06-02 17:55 | Emergency (ER) | payer OTHER ==
[2025-06-02 18:41] LABS: Hematocrit 29.1 % (36.0-47.0); Hemoglobin 9.6 g/dL (12.0-16.0); MDiff Complete? YES; Manual Diff?? YES; Mean Corpuscular Hemoglobin 28.2 pg (27.0-31.0); Mean Corpuscular Volume 85.4 fl (78.0-98.0); Platelet Count 133 10x3/uL (130-400); Red Blood Cell (RBC) Count 3.41 mill/uL (4.20-5.40); White Blood Cell (WBC) Count 6.1 10x3/uL (4.8-10.8)
[2025-06-02 18:50] LABS: Platelet Adequacy Comment Appears Adequate
[2025-06-02 18:53] LABS: BHCG - Serum Negative (NEGATIVE); Bicarbonate (HCO3v) 30.1 mmol/L (22.0-28.0); CO2 Tension (PvCO2) 48.7 mmHg (42.0-51.0); Calcium, Ionized 1.17 mmol/L (1.15-1.33); Chloride 102 mmol/L (98-107); Hemoglobin - Calc 9.6 g/dL (12.0-16.0); Potassium 4.4 mmol/L (3.5-5.1); Pregs Control Bar Appear? YES (CONTROL BAR); Sodium 139 mmol/L (138-145); T. Carbon Dioxide 31.6 mmol/L (22.0-28.0); vO2 Saturation-calc 63.6 % (60.0-85.0)
[2025-06-02 19:04] LABS: ALT (SGPT) 20 U/L (Less than 34); AST (SGOT) 25 U/L (11-34); Albumin 3.7 g/dL (3.1-4.5); Alkaline Phosphatase 50 U/L (40-110); Anion Gap 17 mmol/L (10-20); BUN (Urea Nitrogen) 24 mg/dL (7.0-18.7); Bilirubin, Total 0.3 mg/dL (0.3-1.2); Calc. Creatinine Clearance 0 mL/min (70-130); Calcium 9.1 mg/dL (7.8-10.44); Carbon Dioxide 26 mmol/L (22-29); Chloride 101 mmol/L (98-107); Globulin 3.7 g/dL (2.4-3.5); Glucose 178 mg/dL (70-105); Lipase 59 U/L (8-78); Magnesium 1.8 mg/dL (1.6-2.6); Potassium 4.6 mmol/L (3.5-5.1); Sodium 139 mmol/L (136-145)
[2025-06-02] MEDS ORDERED: cloNIDine 0.1 MG TAB ONE (19:05)
[2025-06-02] MEDS ORDERED: Ondansetron PF 4 MG/2 ML Vial ONE (20:28)
[2025-06-02 20:30] LABS: Glucose, Urine (Dipstick) 100 mg/dL (Negative); Leukocyte Negative (Negative); Protein, Urine (Dipstick) > or equal to 300 mg/dL (Neg-Trace); Specific Gravity, Urine 1.020 (1.005-1.030)
[2025-06-02 20:37] LABS: Bacteria/HPF Rare-Few HPF (None Seen); CAUTI Indications for Culture Pelvic or flank pain; WBC/HPF 0-3 HPF (0-3)
[2025-06-02 20:39] LABS: Urine Culture Reflex No No
== END 2025-06-02 23:42 | disposition home or self-care (01) ==
LOC: NAV ERS 17:55
DX: I16.0 Hypertensive urgency (principal); I12.0 Hypertensive chronic kidney disease with stage 5 chronic kidney disease or end stage renal disease; E10.22 Type 1 diabetes mellitus with diabetic chronic kidney disease; N18.6 End stage renal disease; R10.9 Unspecified abdominal pain; G89.29 Other chronic pain; K59.00 Constipation, unspecified; E10.40 Type 1 diabetes mellitus with diabetic neuropathy, unspecified; Z79.82 Long term (current) use of aspirin; Z79.4 Long term (current) use of insulin; Z79.899 Other long term (current) drug therapy
CPT/HCPCS: 36415; 71045; 74176; 80053; 81001; 82330; 82435; 82803; 83605; 83690; 83735; 84132; 84295; 84703; 85014; 85025; 87428; 93005; 94760; 96374; 96375; 96376; J2270; J2405